=== PATIENT | female | born 1975 | race Caucasian/White ===

== ENCOUNTER 2021-08-30 12:23 | Inpatient (IN) | payer MEDICAID, OTHER ==
[~2021-08-30] VITALS: Ht 165.1 cm; Wt 125.0 kg
[2021-08-30 14:00] LABS: Basophils # (auto) 0 10 ^3/uL (0-0.2); Basophils % (auto) 0.2 % (0.0-2.0); Eosinophils # (auto) 0 10 ^3/uL (0-0.8); Hematocrit 42.1 % (36.0-46.0); Hemoglobin 13.6 g/dL (12.2-16.2); Lymphocytes # (auto) 1.7 10 ^3/uL (0.4-5.4); Lymphocytes % (auto) 19.5 % (10.0-50.0); Mean Corpuscular Hemoglobin 27.2 pg (28.0-32.0); Mean Corpuscular Hgb Conc. 32.2 g/dL (32.0-36.0); Mean Corpuscular Volume 84.4 fL (80.0-100.0); Monocytes # (auto) 0.8 10 ^3/uL (0-1.3); Monocytes % (auto) 8.6 % (0.0-12.0); Neutrophils # (auto) 6.4 10 ^3/uL (1.6-8.6); Neutrophils % (auto) 71.7 % (37.0-80.0); Nucleated Red Blood Cells % 0.1 %; Red Blood Cells 4.99 10^6/uL (4.0-5.20); Red Cell Distribution Width 19.5 % (11.8-14.3); White Blood Cell 8.9 10^3/uL (4.4-10.8)
[2021-08-30 14:27] LABS: Calcium 8.3 mg/dL (8.5-10.1); Magnesium 2.4 mg/dL (1.6-2.6)
[2021-08-30 14:43] LABS: BUN/Creatinine Ratio 14.5; Bilirubin, Total 0.5 mg/dL (0.2-1.0); Total Protein 7.6 g/dL (6.4-8.2)
[2021-08-30] MEDS ORDERED: AZITHROMYCIN 500MG/ 250ML 250 ML IV ONE (15:00)
[2021-08-30] MEDS ORDERED: ZINC SULFATE 220mg CAP or TAB PO ONE (15:00)
[2021-08-30] MEDS ORDERED: CHOLECALCIFEROL (VITD3) 2,000 UNIT CAP/TAB PO ONE (15:00)
[2021-08-30] MEDS ORDERED: ASCORBIC ACID 500 MG TAB PO ONE (15:00)
[2021-08-30] MEDS ORDERED: DexAMETHasone SOD PHOS 10MG/1ML VIAL INJ IV ONE (15:00)
[2021-08-30] MEDS ORDERED: cefTRIAXone 1GM/50ML D5W 50 ML IV ONE (15:00)
[2021-08-30] MEDS ORDERED: hydrOXYchloroQUINE SULFATE 200 MG TAB PO ONE (15:45)
[2021-08-30] MEDS ORDERED: NITROGLYCERIN 0.4 MG SL TAB SL PRN (16:45)
[2021-08-30] MEDS ORDERED: MORPHINE SULFATE INJECTION 2 MG/ML SYRG IV PRN (16:45)
[2021-08-30] MEDS ORDERED: GABA300C10 PO (17:04)
[2021-08-30] MEDS ORDERED: BUPR75TA11 PO (17:04)
[2021-08-30] MEDS ORDERED: ALBUAER3 IN (17:04)
[2021-08-30 19:03] VITALS: BP 113/72
[2021-08-30 22:00] VITALS: BP 109/58
[2021-08-31] MEDS ORDERED: TEMAZEPAM 15 MG CAP PO ONE (00:45)
[2021-08-31] MEDS ORDERED: REMDESIVIR PER PHARMACY 0 ML IV SCH (01:15)
[2021-08-31] MEDS ORDERED: ACETAMINOPHEN 500 MG TAB PO PRN (01:15)
[2021-08-31] MEDS ORDERED: MORPHINE SULFATE INJECTION 2 MG/ML SYRG IV PRN ×2 (01:15)
[2021-08-31] MEDS ORDERED: ONDANSETRON HCL 4 MG/2 ML VIAL IV PRN (01:15)
[2021-08-31] MEDS ORDERED: ALUM & MAG HYDROX-SIMETH LIQ(MAALOX) 30 ML PO PRN (01:15)
[2021-08-31] MEDS ORDERED: LORazepam 2MG/ML-1ML VIAL IV PRN (01:15)
[2021-08-31] MEDS ORDERED: NITROGLYCERIN 0.4 MG SL TAB SL PRN (01:15)
[2021-08-31] MEDS ORDERED: DOCUSATE SOD 100 MG CAP PO PRN (01:15)
[2021-08-31] MEDS ORDERED: FAMOTIDINE (10MG/ML) 2ML VL IV ONE (01:30)
[2021-08-31] MEDS ORDERED: ALBUMIN 25% 100 ML IV ONE (01:30)
[2021-08-31] MEDS ORDERED: ALBUMIN 25% 100 ML IV SCH (06:00)
[2021-08-31] MEDS: FUROSEMIDE 20 MG/2 ML VIAL IV SCH ×2 (06:27→17:52)
[2021-08-31 06:35] LABS: Basophils # (auto) 0 10 ^3/uL (0-0.2); Basophils % (auto) 0.4 % (0.0-2.0); Eosinophils # (auto) 0 10 ^3/uL (0-0.8); Hematocrit 41.2 % (36.0-46.0); Hemoglobin 13.3 g/dL (12.2-16.2); Lymphocytes # (auto) 1.3 10 ^3/uL (0.4-5.4); Lymphocytes % (auto) 21.9 % (10.0-50.0); Mean Corpuscular Hemoglobin 27.1 pg (28.0-32.0); Mean Corpuscular Hgb Conc. 32.2 g/dL (32.0-36.0); Mean Corpuscular Volume 84.2 fL (80.0-100.0); Monocytes # (auto) 0.6 10 ^3/uL (0-1.3); Monocytes % (auto) 10.2 % (0.0-12.0); Neutrophils % (auto) 67.5 % (37.0-80.0); Nucleated Red Blood Cells % 0.2 %; Red Blood Cells 4.89 10^6/uL (4.0-5.20); Red Cell Distribution Width 19.2 % (11.8-14.3)
[2021-08-31 06:47] LABS: Partial Thromboplastin Time 32.1 sec (23.6-33.0)
[2021-08-31 06:51] LABS: Potassium 3.9 mmol/L (3.5-5.1)
[2021-08-31 07:03] LABS: Free T3 2.13 pg/mL (2.3-4.2); Free T4 (Free Thyroxine) 0.98 ng/dL (0.89-1.76)
[2021-08-31 07:04] LABS: Albumin 3.1 g/dL (3.4-5.0); BUN/Creatinine Ratio 16.7; Bilirubin, Total 0.4 mg/dL (0.2-1.0); CRP High Sensitivity 12.3 mg/dL (< 0.3); Calcium 8.3 mg/dL (8.5-10.1); Magnesium 2.8 mg/dL (1.6-2.6); Phosphorus 2.7 mg/dL (2.5-4.90); Total Protein 7.2 g/dL (6.4-8.2); Uric Acid 5.9 mg/dL (2.6-6.0)
[2021-08-31 07:38] LABS: Thyroid Stimulating Hormone 0.46 uIU/mL (0.358-3.74)
[2021-08-31 09:00] VITALS: BP 144/88
[2021-08-31] MEDS: DexAMETHasone SOD PHOS 10MG/1ML VIAL INJ IV SCH (09:16)
[2021-08-31] MEDS: FAMOTIDINE (10MG/ML) 2ML VL IV SCH ×2 (09:16→21:47)
[2021-08-31] MEDS: ASPirin 81 mg TAB PO SCH (09:18)
[2021-08-31] MEDS: ZINC SULFATE 220mg CAP or TAB PO SCH (09:18)
[2021-08-31] MEDS: IVERMECTIN 3 MG TAB PO SCH (09:19)
[2021-08-31] MEDS: ASCORBIC ACID 1,000 MG TAB PO SCH (09:19)
[2021-08-31] MEDS: CHOLECALCIFEROL (VITD3) 2,000 UNIT CAP/TAB PO SCH (09:20)
[2021-08-31] MEDS: ENOXAPARIN SOD 40 MG/0.4 ML SYRINGE SC SCH ×2 (09:20→21:47)
[2021-08-31] MEDS ORDERED: REMDESIVIR 200 MG in NS 210ml LOADING DOSE ADULT IV ONE (10:00)
[2021-08-31] MEDS: BUDESONIDE (INHALATION) 180 MCG IH IN SCH ×2 (10:00→19:34)
[2021-08-31] MEDS ORDERED: POTASSIUM CHL 20 Meq TABLET PO SCH (10:00)
[2021-08-31 13:00] VITALS: BP 103/68
[2021-08-31 13:25] LABS: Urine Bacteria FEW /hpf (None Seen); Urine Blood Negative /uL (Negative); Urine Hyaline Cast FEW /lpf (0 - 2); Urine Mucus FEW (None Seen); Urine Specific Gravity 1.029 (1.001-1.035); Urine WBC 3 /hpf (0 - 5)
[2021-08-31 13:33] LABS: Alcohol, Urine < 3.0 mg/dL (0-10); Amphetamine Screen, Urine NEGATIVE (NEGATIVE); Barbiturate Scree,Urine NEGATIVE (NEGATIVE); Benzodiazephine Screen, Urine NEGATIVE (NEGATIVE); Cannabinoid Screen, Urine NEGATIVE (NEGATIVE); Cocaine Screen, Urine NEGATIVE (NEGATIVE); Opiate Scree,Urine NEGATIVE (NEGATIVE); Phencyclidine Screen, Urine NEGATIVE (NEGATIVE)
[2021-08-31] MEDS ORDERED: DEXTROSE (50%) 50ML SYRG IV PRN (13:45)
[2021-08-31] MEDS: AZITHROMYCIN 500MG/ 250ML 250 ML IV SCH (14:29)
[2021-08-31 15:28] LABS: Hepatitis B Surface Antibody Negative (Negative)
[2021-08-31 16:06] LABS: Hepatitis A Total Antibody Negative (Negative)
[2021-08-31 16:45] LABS: Hepatitis C Antibody Negative (Negative)
[2021-08-31 17:00] VITALS: BP 137/69
[2021-08-31] MEDS: InsuLIN REG 1unit/0.01ml Soln (100units/ml) SC SCH (17:47)
[2021-08-31] MEDS: ACCU-CHEK COMFORT CURVE STRIP VI SCH (17:48)
[2021-08-31] MEDS: ALBUTEROL SULF HFA 90MCG INH 200DOSE IN PRN (19:34)
[2021-08-31] MEDS: guaiFENesin-DM 100/10mg/5ml SYR PO PRN (19:56)
[2021-08-31] MEDS ORDERED: cefTRIAXone 1GM/50ML D5W 50 ML IV SCH (21:00)
[2021-08-31] MEDS: POTASSIUM CHL 10 Meq TABLET PO SCH (21:47)
[2021-08-31 22:00] VITALS: BP 127/81
[2021-08-31] MEDS ORDERED: ATORVASTATIN 20 MG TAB PO SCH (22:00)
[2021-09-01] MEDS: InsuLIN REG 1unit/0.01ml Soln (100units/ml) SC SCH ×4 (00:06→18:17)
[2021-09-01] MEDS: ACCU-CHEK COMFORT CURVE STRIP VI SCH ×4 (00:07→18:24)
[2021-09-01 05:00] VITALS: BP 104/60
[2021-09-01] MEDS: FUROSEMIDE 20 MG/2 ML VIAL IV SCH ×2 (05:49→18:16)
[2021-09-01] MEDS: ALBUTEROL SULF HFA 90MCG INH 200DOSE IN PRN ×2 (07:17→23:24)
[2021-09-01] MEDS: BUDESONIDE (INHALATION) 180 MCG IH IN SCH ×2 (07:17→22:00)
[2021-09-01 09:00] VITALS: BP 129/74
[2021-09-01] MEDS: cefTRIAXone 1GM/50ML D5W 50 ML IV SCH (10:39)
[2021-09-01] MEDS: DexAMETHasone SOD PHOS 10MG/1ML VIAL INJ IV SCH (10:47)
[2021-09-01] MEDS: ZINC SULFATE 220mg CAP or TAB PO SCH (10:48)
[2021-09-01] MEDS: FAMOTIDINE (10MG/ML) 2ML VL IV SCH ×2 (10:48→22:38)
[2021-09-01] MEDS: POTASSIUM CHL 10 Meq TABLET PO SCH ×2 (10:48→22:37)
[2021-09-01] MEDS: ASCORBIC ACID 1,000 MG TAB PO SCH (10:49)
[2021-09-01] MEDS: CHOLECALCIFEROL (VITD3) 2,000 UNIT CAP/TAB PO SCH (10:49)
[2021-09-01] MEDS: IVERMECTIN 3 MG TAB PO SCH (10:49)
[2021-09-01] MEDS: ASPirin 81 mg TAB PO SCH (10:51)
[2021-09-01] MEDS: ENOXAPARIN SOD 40 MG/0.4 ML SYRINGE SC SCH ×2 (10:51→22:38)
[2021-09-01] MEDS: AZITHROMYCIN 500MG/ 250ML 250 ML IV SCH (11:43)
[2021-09-01] MEDS: guaiFENesin-DM 100/10mg/5ml SYR PO PRN ×2 (12:21→20:29)
[2021-09-01 12:22] LABS: Basophils # (auto) 0 10 ^3/uL (0-0.2); Eosinophils # (auto) 0 10 ^3/uL (0-0.8); Hemoglobin 13.2 g/dL (12.2-16.2); Nucleated Red Blood Cells % 0.1 %
[2021-09-01 12:24] LABS: Basophils % (auto) 0.2 % (0.0-2.0); Hematocrit 42.1 % (36.0-46.0); Lymphocytes # (auto) 1.8 10 ^3/uL (0.4-5.4); Lymphocytes % (auto) 21.4 % (10.0-50.0); Mean Corpuscular Hemoglobin 26.5 pg (28.0-32.0); Mean Corpuscular Hgb Conc. 31.4 g/dL (32.0-36.0); Mean Corpuscular Volume 84.6 fL (80.0-100.0); Monocytes # (auto) 0.9 10 ^3/uL (0-1.3); Monocytes % (auto) 11.2 % (0.0-12.0); Neutrophils # (auto) 5.7 10 ^3/uL (1.6-8.6); Neutrophils % (auto) 67.2 % (37.0-80.0); Red Blood Cells 4.98 10^6/uL (4.0-5.20); Red Cell Distribution Width 19.5 % (11.8-14.3); White Blood Cell 8.5 10^3/uL (4.4-10.8)
[2021-09-01 12:30] VITALS: BP 137/73
[2021-09-01 12:41] LABS: Albumin 3.3 g/dL (3.4-5.0); Potassium 3.7 mmol/L (3.5-5.1)
[2021-09-01 12:42] LABS: Albumin 3.4 g/dL (3.4-5.0); Potassium 3.7 mmol/L (3.5-5.1)
[2021-09-01 12:45] LABS: BUN/Creatinine Ratio 22.6; Bilirubin, Total 0.4 mg/dL (0.2-1.0); Total Protein 7.2 g/dL (6.4-8.2)
[2021-09-01 12:50] LABS: Bilirubin, Direct 0.2 mg/dL (0-0.2); Bilirubin, Total 0.5 mg/dL (0.2-1.0); CRP High Sensitivity 4.39 mg/dL (< 0.3); Total Protein 7.2 g/dL (6.4-8.2)
[2021-09-01] MEDS: REMDESIVIR 100mg 100 MG in SODIUM CHL 0.9% 230 ML IV SCH (16:43)
[2021-09-01 17:00] VITALS: BP 127/77
[2021-09-01] MEDS: TEMAZEPAM 15 MG CAP PO PRN (20:29)
[2021-09-01 22:00] VITALS: BP 110/68
[2021-09-02] MEDS: ACCU-CHEK COMFORT CURVE STRIP VI SCH ×4 (00:13→18:21)
[2021-09-02] MEDS: InsuLIN REG 1unit/0.01ml Soln (100units/ml) SC SCH ×4 (00:14→18:29)
[2021-09-02] MEDS: guaiFENesin-DM 100/10mg/5ml SYR PO PRN ×4 (00:16→20:56)
[2021-09-02 05:00] VITALS: BP 135/82
[2021-09-02] MEDS: FUROSEMIDE 20 MG/2 ML VIAL IV SCH ×2 (05:42→18:21)
[2021-09-02 05:49] LABS: Albumin 3.3 g/dL (3.4-5.0); Calcium 8.8 mg/dL (8.5-10.1); Potassium 3.8 mmol/L (3.5-5.1)
[2021-09-02 05:52] LABS: BUN/Creatinine Ratio 18.2; Bilirubin, Direct 0.2 mg/dL (0-0.2); Bilirubin, Total 0.4 mg/dL (0.2-1.0); Total Protein 7.1 g/dL (6.4-8.2)
[2021-09-02] MEDS: ALBUTEROL SULF HFA 90MCG INH 200DOSE IN PRN ×2 (06:22→20:45)
[2021-09-02] MEDS: BUDESONIDE (INHALATION) 180 MCG IH IN SCH ×2 (06:22→20:45)
[2021-09-02 09:00] VITALS: BP 124/85
[2021-09-02] MEDS: cefTRIAXone 1GM/50ML D5W 50 ML IV SCH (10:37)
[2021-09-02] MEDS: FAMOTIDINE (10MG/ML) 2ML VL IV SCH ×2 (10:39→20:55)
[2021-09-02] MEDS: DexAMETHasone SOD PHOS 10MG/1ML VIAL INJ IV SCH (10:39)
[2021-09-02] MEDS: ASPirin 81 mg TAB PO SCH (10:40)
[2021-09-02] MEDS: POTASSIUM CHL 10 Meq TABLET PO SCH ×2 (10:41→20:55)
[2021-09-02] MEDS: ZINC SULFATE 220mg CAP or TAB PO SCH (10:41)
[2021-09-02] MEDS: IVERMECTIN 3 MG TAB PO SCH (10:42)
[2021-09-02] MEDS: CHOLECALCIFEROL (VITD3) 2,000 UNIT CAP/TAB PO SCH (10:42)
[2021-09-02] MEDS: ASCORBIC ACID 1,000 MG TAB PO SCH (10:42)
[2021-09-02] MEDS: ENOXAPARIN SOD 40 MG/0.4 ML SYRINGE SC SCH ×2 (10:43→20:55)
[2021-09-02] MEDS: AZITHROMYCIN 500MG/ 250ML 250 ML IV SCH (12:02)
[2021-09-02 13:00] VITALS: BP 138/93
[2021-09-02] MEDS: REMDESIVIR 100mg 100 MG in SODIUM CHL 0.9% 230 ML IV SCH (15:48)
[2021-09-02 16:36] VITALS: BP 143/98
[2021-09-02] MEDS: HYDROcodone-ACET 5/325MG TAB PO PRN (18:30)
[2021-09-02] MEDS: TEMAZEPAM 15 MG CAP PO PRN (20:56)
[2021-09-02 22:00] VITALS: BP 108/65
[2021-09-03] MEDS: ACCU-CHEK COMFORT CURVE STRIP VI SCH ×5 (00:13→23:58)
[2021-09-03] MEDS: InsuLIN REG 1unit/0.01ml Soln (100units/ml) SC SCH ×4 (00:15→17:41)
[2021-09-03 05:00] VITALS: BP 120/77
[2021-09-03 06:01] LABS: Potassium 4.4 mmol/L (3.5-5.1)
[2021-09-03] MEDS: FUROSEMIDE 20 MG/2 ML VIAL IV SCH ×2 (06:02→17:34)
[2021-09-03 06:15] LABS: Albumin 3.1 g/dL (3.4-5.0); BUN/Creatinine Ratio 22.9; Bilirubin, Total 0.5 mg/dL (0.2-1.0); Calcium 9.1 mg/dL (8.5-10.1); Total Protein 6.5 g/dL (6.4-8.2)
[2021-09-03] MEDS: guaiFENesin-DM 100/10mg/5ml SYR PO PRN ×4 (06:24→20:40)
[2021-09-03] MEDS: HYDROcodone-ACET 5/325MG TAB PO PRN ×4 (06:24→20:40)
[2021-09-03] MEDS: BUDESONIDE (INHALATION) 180 MCG IH IN SCH ×2 (06:27→21:50)
[2021-09-03] MEDS: ALBUTEROL SULF HFA 90MCG INH 200DOSE IN PRN ×2 (06:27→21:50)
[2021-09-03] MEDS: ENOXAPARIN SOD 40 MG/0.4 ML SYRINGE SC SCH ×2 (08:43→21:19)
[2021-09-03] MEDS: DexAMETHasone SOD PHOS 10MG/1ML VIAL INJ IV SCH (08:43)
[2021-09-03] MEDS: cefTRIAXone 1GM/50ML D5W 50 ML IV SCH (08:43)
[2021-09-03] MEDS: AZITHROMYCIN 500MG/ 250ML 250 ML IV SCH (08:43)
[2021-09-03] MEDS: FAMOTIDINE (10MG/ML) 2ML VL IV SCH ×2 (08:43→21:18)
[2021-09-03] MEDS: ZINC SULFATE 220mg CAP or TAB PO SCH (08:44)
[2021-09-03] MEDS: ASPirin 81 mg TAB PO SCH (08:44)
[2021-09-03] MEDS: IVERMECTIN 3 MG TAB PO SCH (08:44)
[2021-09-03] MEDS: POTASSIUM CHL 10 Meq TABLET PO SCH ×2 (08:44→21:18)
[2021-09-03] MEDS: CHOLECALCIFEROL (VITD3) 2,000 UNIT CAP/TAB PO SCH (08:44)
[2021-09-03] MEDS: ASCORBIC ACID 1,000 MG TAB PO SCH (08:45)
[2021-09-03 08:55] VITALS: BP 120/69
[2021-09-03 13:00] VITALS: BP 147/98
[2021-09-03] MEDS: REMDESIVIR 100mg 100 MG in SODIUM CHL 0.9% 230 ML IV SCH (16:23)
[2021-09-03 17:00] VITALS: BP 136/72
[2021-09-03] MEDS: TEMAZEPAM 15 MG CAP PO PRN (21:20)
[2021-09-03 22:17] VITALS: BP 140/86
[2021-09-04] MEDS: HYDROcodone-ACET 5/325MG TAB PO PRN ×5 (00:41→14:59)
[2021-09-04 05:25] VITALS: BP 121/79
[2021-09-04] MEDS: InsuLIN REG 1unit/0.01ml Soln (100units/ml) SC SCH ×3 (06:00→12:37)
[2021-09-04] MEDS: ACCU-CHEK COMFORT CURVE STRIP VI SCH ×2 (06:07→12:28)
[2021-09-04] MEDS: FUROSEMIDE 20 MG/2 ML VIAL IV SCH (06:07)
[2021-09-04] MEDS: guaiFENesin-DM 100/10mg/5ml SYR PO PRN ×4 (06:17→14:58)
[2021-09-04 06:23] LABS: Basophils # (auto) 0 10 ^3/uL (0-0.2); Basophils % (auto) 0.1 % (0.0-2.0); Eosinophils # (auto) 0 10 ^3/uL (0-0.8); Lymphocytes # (auto) 2.5 10 ^3/uL (0.4-5.4); Mean Corpuscular Hemoglobin 26.8 pg (28.0-32.0); Monocytes # (auto) 0.9 10 ^3/uL (0-1.3); Red Blood Cells 5.22 10^6/uL (4.0-5.20)
[2021-09-04 06:24] LABS: Eosinophils % (auto) 0.3 % (0.0-7.0); Hematocrit 43.9 % (36.0-46.0); Lymphocytes % (auto) 29.6 % (10.0-50.0); Mean Corpuscular Hgb Conc. 31.8 g/dL (32.0-36.0); Monocytes % (auto) 10.9 % (0.0-12.0); Neutrophils % (auto) 59.1 % (37.0-80.0); Nucleated Red Blood Cells % 0.2 %; Red Cell Distribution Width 19.1 % (11.8-14.3); White Blood Cell 8.5 10^3/uL (4.4-10.8)
[2021-09-04 06:47] LABS: Potassium 4.2 mmol/L (3.5-5.1)
[2021-09-04] MEDS: ALBUTEROL SULF HFA 90MCG INH 200DOSE IN PRN (06:51)
[2021-09-04] MEDS: BUDESONIDE (INHALATION) 180 MCG IH IN SCH (06:51)
[2021-09-04 06:53] LABS: Albumin 3.1 g/dL (3.4-5.0); BUN/Creatinine Ratio 24.2; Bilirubin, Total 0.5 mg/dL (0.2-1.0); CRP High Sensitivity 0.75 mg/dL (< 0.3); Calcium 8.7 mg/dL (8.5-10.1); Total Protein 6.5 g/dL (6.4-8.2)
[2021-09-04 08:00] VITALS: BP 132/96
[2021-09-04] MEDS: cefTRIAXone 1GM/50ML D5W 50 ML IV SCH (08:26)
[2021-09-04] MEDS: DexAMETHasone SOD PHOS 10MG/1ML VIAL INJ IV SCH (08:27)
[2021-09-04] MEDS: FAMOTIDINE (10MG/ML) 2ML VL IV SCH (08:27)
[2021-09-04] MEDS: ZINC SULFATE 220mg CAP or TAB PO SCH (08:28)
[2021-09-04] MEDS: ASPirin 81 mg TAB PO SCH (08:28)
[2021-09-04] MEDS: POTASSIUM CHL 10 Meq TABLET PO SCH (08:29)
[2021-09-04] MEDS: ASCORBIC ACID 1,000 MG TAB PO SCH (08:29)
[2021-09-04] MEDS: IVERMECTIN 3 MG TAB PO SCH (08:29)
[2021-09-04] MEDS: ENOXAPARIN SOD 40 MG/0.4 ML SYRINGE SC SCH (08:30)
[2021-09-04] MEDS: CHOLECALCIFEROL (VITD3) 2,000 UNIT CAP/TAB PO SCH (08:30)
[2021-09-04 09:00] VITALS: BP 132/96
[2021-09-04] MEDS: AZITHROMYCIN 500MG/ 250ML 250 ML IV SCH (10:28)
[2021-09-04 12:47] VITALS: BP 144/87
[2021-09-04] MEDS ORDERED: DEX4T PO (13:35)
[2021-09-04] MEDS ORDERED: FAMO20TA10 PO (13:35)
[2021-09-04] MEDS ORDERED: DEXT1SYP9 PO (13:35)
[2021-09-04] MEDS ORDERED: ASPI-378 PO (13:35)
[2021-09-04] MEDS ORDERED: ALBUAER3 IN (13:35)
[2021-09-04] MEDS ORDERED: CHOL20007 PO (13:35)
[2021-09-04] MEDS ORDERED: BUDE2SUS3 IN (13:35)
[2021-09-04] MEDS ORDERED: ASCO10003 PO (13:35)
[2021-09-04] MEDS ORDERED: ZINC220T6 PO (13:35)
[2021-09-04] MEDS ORDERED: DOXY-286 PO (13:35)
[2021-09-04] MEDS: REMDESIVIR 100mg 100 MG in SODIUM CHL 0.9% 230 ML IV SCH (14:59)
[2021-09-04 16:55] VITALS: BP 115/69
== END 2021-09-04 18:00 | disposition home or self-care (01) | DRG 720 ==
LOC: ER 12:23 → TELE 16:38 → TELE-EAST 18:36
PROVIDERS: ADMIT Hospitalist; ATTEND Internal Medicine
PROC: XW033E5 Introduction of Remdesivir Anti-infective into Peripheral Vein, Percutaneous Approach, New Technology Group 5 (ICD-10-PCS; principal; 2021-08-31)
DX: A41.89 Other specified sepsis (principal); J96.21 Acute and chronic respiratory failure with hypoxia; J12.82 Pneumonia due to coronavirus disease 2019; U07.1 COVID-19; D89.839 Cytokine release syndrome, grade unspecified; J45.901 Unspecified asthma with (acute) exacerbation; Z68.42 Body mass index [BMI] 45.0-49.9, adult; E88.09 Other disorders of plasma-protein metabolism, not elsewhere classified; R65.20 Severe sepsis without septic shock; E66.01 Morbid (severe) obesity due to excess calories; F32.9 Major depressive disorder, single episode, unspecified; E88.81 Metabolic syndrome and other insulin resistance; M79.7 Fibromyalgia; E55.9 Vitamin D deficiency, unspecified; E78.5 Hyperlipidemia, unspecified
CPT/HCPCS: 36415; 36600; 71045; 80053; 80061; 80076; 80307; 81001; 82306; 82728; 82805; 82962; 83036; 83605; 83615; 83735; 83880; 84100; 84132; 84439; 84443; 84481; 84484; 84550; 85025; 85379; 85610; 85730; 86141; 86704; 86706; 86708; 86803; 87040; 87086; 87340; 87426; 93005; 93970; 94640; 96365; 96375; G0378; J0696; J1100; J1815; J3490; P9047

== ENCOUNTER 2021-10-23 22:18 | Emergency (ER) | payer MEDICAID ==
[~2021-10-23] VITALS: Ht 165.1 cm; Wt 131.5 kg
[~2021-10-23 22:18] MED LIST: ALBUAER3 IN; ASCO10003 PO; ASPI-378 PO; BUDE2SUS3 IN; BUPR75TA11 PO; DEX4T PO; DEXT1SYP9 PO; DOXY-286 PO; GABA300C10 PO; ZINC220T6 PO
[2021-10-23 22:29] VITALS: BP 140/86
== END 2021-10-23 22:36 | disposition left against medical advice (07) ==
LOC: ER 22:18
DX: R06.02 Shortness of breath (principal); Z20.822 Contact with and (suspected) exposure to COVID-19; Z53.21 Procedure and treatment not carried out due to patient leaving prior to being seen by health care provider
CPT/HCPCS: 36415; 87426

== ENCOUNTER 2022-05-19 12:31 | Emergency (ER) | payer MEDICAID ==
[~2022-05-19] VITALS: Ht 165.1 cm; Wt 127.0 kg
[2022-05-19 19:03] LABS: Urine Bacteria FEW /hpf (None Seen); Urine Blood Negative /uL (Negative); Urine Mucus FEW (None Seen); Urine Specific Gravity 1.027 (1.001-1.035); Urine WBC 3 /hpf (0 - 5)
[2022-05-19 19:07] LABS: Albumin 3.4 g/dL (3.4-5.0); BUN/Creatinine Ratio 17.3; Calcium 8.3 mg/dL (8.5-10.1); Potassium 3.3 mmol/L (3.5-5.1)
[2022-05-19 19:10] LABS: Bilirubin, Total 1.2 mg/dL (0.2-1.0); Total Protein 6.8 g/dL (6.4-8.2)
[2022-05-19 19:21] LABS: Basophils # (auto) 0.2 10 ^3/uL (0-0.2); Basophils % (auto) 2.7 % (0.0-2.0); Eosinophils # (auto) 0.1 10 ^3/uL (0-0.8); Eosinophils % (auto) 1.3 % (0.0-7.0); Hematocrit 43.3 % (36.0-46.0); Hemoglobin 13.5 g/dL (12.2-16.2); Lymphocytes # (auto) 1.8 10 ^3/uL (0.4-5.4); Lymphocytes % (auto) 27.1 % (10.0-50.0); Mean Corpuscular Hemoglobin 26.4 pg (28.0-32.0); Mean Corpuscular Hgb Conc. 31.2 g/dL (32.0-36.0); Mean Corpuscular Volume 84.6 fL (80.0-100.0); Monocytes # (auto) 0.4 10 ^3/uL (0-1.3); Neutrophils # (auto) 4.3 10 ^3/uL (1.6-8.6); Neutrophils % (auto) 62.9 % (37.0-80.0); Nucleated Red Blood Cells % 0.4 %; Red Blood Cells 5.11 10^6/uL (4.0-5.20); White Blood Cell 6.8 10^3/uL (4.4-10.8)
[2022-05-19] MEDS ORDERED: DICY10CA PO (20:30)
[2022-05-19 20:48] VITALS: BP 128/74
[2022-05-19 21:16] LABS: Red Cell Distribution Width 20.6 % (11.8-14.3)
== END 2022-05-19 20:58 | disposition home or self-care (01) ==
LOC: ER 12:33
DX: K43.9 Ventral hernia without obstruction or gangrene (principal); J44.9 Chronic obstructive pulmonary disease, unspecified
CPT/HCPCS: 36415; 80053; 81001; 85025

== ENCOUNTER 2023-04-19 10:39 | Inpatient (IN) | payer MEDICAID ==
[~2023-04-19] VITALS: Ht 165.1 cm; Wt 109.6 kg
[2023-04-19] VITALS (22 sets, daily range): BP systolic 68–109; BP diastolic 26–56; PULSE 89–110; RESP 12–27; TEMP 97.5–97.7; O2SAT 2–98
[~2023-04-19 10:39] MED LIST changes: -BUPR75TA11 PO; +BUPR75TA89 PO; +DICY10CA PO; +GABA-1250 PO; -GABA300C10 PO
[2023-04-19] MEDS ORDERED: SODIUM CHLORIDE 0.9% 500 ML IVB ONE (11:00)
[2023-04-19 11:46] LABS: Basophils # (auto) 0 10 ^3/uL (0-0.2); Basophils % (auto) 0.3 % (0.0-2.0); Eosinophils # (auto) 0.1 10 ^3/uL (0-0.8); Lymphocytes # (auto) 1.4 10 ^3/uL (0.4-5.4); Monocytes # (auto) 1.5 10 ^3/uL (0-1.3); Nucleated Red Blood Cells % 0.2 %
[2023-04-19 11:49] LABS: Eosinophils % (auto) 0.6 % (0.0-7.0); Hematocrit 39.2 % (36.0-46.0); Hemoglobin 13.3 g/dL (12.2-16.2); Mean Corpuscular Volume 123.5 fL (80.0-100.0); Monocytes % (auto) 11.3 % (0.0-12.0); Neutrophils # (auto) 10.6 10 ^3/uL (1.6-8.6); Neutrophils % (auto) 77.8 % (37.0-80.0); Red Blood Cells 3.17 10^6/uL (4.0-5.20); Red Cell Distribution Width 15.3 % (11.8-14.3); White Blood Cell 13.6 10^3/uL (4.4-10.8)
[2023-04-19 11:57] LABS: INR 1.46 (0.9-1.15); Partial Thromboplastin Time 31.3 SEC (24.5-34.5)
[2023-04-19 12:10] LABS: Anion Gap 7 (5-15); Blood Alcohol < 3.0 mg/dL (<10); Blood Urea Nitrogen 18 mg/dL (7-18); Calcium 8.3 mg/dL (8.5-10.1); Carbon Dioxide 29 mmol/L (21-32); Chloride 84 mmol/L (98-107); Glucose 100 mg/dL (74-106); Lipase 95 U/L (73-393); Magnesium 1.8 mg/dL (1.6-2.6); Sodium 120 mmol/L (136-145)
[2023-04-19 12:15] LABS: Alanine Aminotransferase 50 U/L (13-56); Alkaline Phosphatase 263 U/L (45-117); Aspartate Aminotransferase 98 U/L (15-37); BUN/Creatinine Ratio 17.6 (10.0-20.0); GFR African American 74 mL/min; GFR Non-African American 61 mL/min; Total Protein 7.2 g/dL (6.4-8.2)
[2023-04-19 12:16] LABS: Lactic Acid w/Reflex 2.3 mmol/L (0.4-2.0)
[2023-04-19 12:29] LABS: Potassium 5.9 mmol/L (3.5-5.1)
[2023-04-19 13:02] LABS: Urine Bacteria FEW /hpf (None Seen); Urine Blood Negative /uL (Negative); Urine Clarity HAZY (Clear); Urine Color Orange (Yellow); Urine Hyaline Cast FEW /lpf (0 - 2); Urine Mucus FEW (None Seen); Urine Protein, UAD TRACE (Negative); Urine Specific Gravity 1.017 (1.001-1.035); Urine Urobilinogen Normal (Negative); Urine WBC 2 /hpf (0 - 5); Urine pH 5.5 (5.0-8.0)
[2023-04-19] MEDS ORDERED: SODIUM CHLORIDE 0.9% 1,000 ML IV ONE (13:30)
[2023-04-19] MEDS ORDERED: cefTRIAXone 1GM/50ML D5W 50 ML IV ONE (13:30)
[2023-04-19] MEDS ORDERED: levoFLOXacin 500MG 100 ML IV ONE (13:30)
[2023-04-19 13:53] LABS: Macrocytosis Moderate; Platelet Estimate Adequate
[2023-04-19] MEDS ORDERED: LORazepam 2MG/ML-1ML VIAL IV PRN (14:45)
[2023-04-19] MEDS ORDERED: ALBUTEROL SULF 2.5 MG/0.5ML(0.5%) NEB SOLN NEB ONE (14:45)
[2023-04-19] MEDS ORDERED: DEXTROSE (50%) 50ML SYRG IV ONE (14:45)
[2023-04-19] MEDS ORDERED: InsuLIN REG 1unit/0.01ml Soln (100units/ml) IV ONE (14:45)
[2023-04-19] MEDS ORDERED: FUROSEMIDE 40 MG/4 ML VIAL IV ONE (14:45)
[2023-04-19] MEDS ORDERED: SODIUM BICARBONATE 8.4% INJ 50ML SYRINGE IV ONE (14:45)
[2023-04-19] MEDS ORDERED: CALCIUM GLUC 1,000mg/50ml-NS 50 ML IV ONE (14:45)
[2023-04-19] MEDS: chlordiazePOXIDE HCL 25 MG CAP PO SCH ×2 (15:52→23:02)
[2023-04-19 16:35] LABS: Amphetamine Screen, Urine NEGATIVE (NEGATIVE); Barbiturate Scree,Urine NEGATIVE (NEGATIVE); Benzodiazephine Screen, Urine NEGATIVE (NEGATIVE); Cannabinoid Screen, Urine NEGATIVE (NEGATIVE); Cocaine Screen, Urine NEGATIVE (NEGATIVE); Creatinine, Urine 163 mg/dL (30.0-125.0); Opiate Scree,Urine NEGATIVE (NEGATIVE); Phencyclidine Screen, Urine NEGATIVE (NEGATIVE); Sodium Urine < 5 mmol/L (40-220)
[2023-04-19] MEDS ORDERED: GABA300C PO (17:10)
[2023-04-19] MEDS: SODIUM CHLORIDE 0.9% 1,000 ML IV SCH (17:16)
[2023-04-19] MEDS: PIPERACILLIN-TAZOB 3.375GM 100 ML IV SCH (17:20)
[2023-04-19] MEDS ORDERED: PIPERACILLIN-TAZOB 3.375GM 100 ML IV SCH (18:00)
[2023-04-19 19:24] LABS: Lactic Acid w/Reflex 2.3 mmol/L (0.4-2.0)
[2023-04-19] MEDS ORDERED: SODIUM CHLORIDE 0.9% 500 ML IV ONE (19:30)
[2023-04-19] MEDS: NOREPINEPHRINE 8 MG/250ML KIT 250 ML IV SCH (21:20)
[2023-04-19] MEDS ORDERED: phytonadione 10 MG in SODIUM CHL 0.9% 50 ML IV ONE (22:45)
[2023-04-19] MEDS: traMADol HCL 50 MG TAB PO PRN (23:02)
[2023-04-20] VITALS (102 sets, daily range): BP systolic 75–125; BP diastolic 39–77; PULSE 75–110; RESP 9–29; TEMP 97.3–98; O2SAT 85–100
[2023-04-20] MEDS: MORPHINE SULFATE INJ 2 MG/ml SYRG IV PRN ×5 (00:12→22:06)
[2023-04-20] MEDS: PIPERACILLIN-TAZOB 3.375GM 100 ML IV SCH ×4 (01:00→17:18)
[2023-04-20] MEDS: SODIUM CHLORIDE 0.9% 1,000 ML IV SCH (05:03)
[2023-04-20] MEDS: chlordiazePOXIDE HCL 25 MG CAP PO SCH ×3 (05:44→22:05)
[2023-04-20 05:57] LABS: Basophils # (auto) 0.1 10 ^3/uL (0-0.2); Hemoglobin 12.5 g/dL (12.2-16.2); Monocytes # (auto) 1.5 10 ^3/uL (0-1.3); Red Cell Distribution Width 15.5 % (11.8-14.3)
[2023-04-20 06:00] LABS: Basophils % (auto) 0.7 % (0.0-2.0); Eosinophils # (auto) 0.1 10 ^3/uL (0-0.8); Eosinophils % (auto) 0.9 % (0.0-7.0); Hematocrit 36.4 % (36.0-46.0); Lymphocytes % (auto) 14.4 % (10.0-50.0); Mean Corpuscular Hemoglobin 42.9 pg (28.0-32.0); Mean Corpuscular Hgb Conc. 34.2 g/dL (32.0-36.0); Mean Corpuscular Volume 125.4 fL (80.0-100.0); Monocytes % (auto) 10.5 % (0.0-12.0); Neutrophils # (auto) 10.2 10 ^3/uL (1.6-8.6); Neutrophils % (auto) 73.5 % (37.0-80.0); Nucleated Red Blood Cells % 0.1 %; White Blood Cell 13.9 10^3/uL (4.4-10.8)
[2023-04-20 06:25] LABS: Albumin 1.7 g/dL (3.4-5.0); BUN/Creatinine Ratio 17.9 (10.0-20.0); Bilirubin, Total 5.4 mg/dL (0.2-1.0); Total Protein 6.2 g/dL (6.4-8.2)
[2023-04-20 06:57] LABS: Potassium 5.7 mmol/L (3.5-5.1)
[2023-04-20] MEDS ORDERED: SODIUM ZIRCONIUM CYCL 10 GM PAK PO ONE (07:15)
[2023-04-20] MEDS: PANTOPRAZOLE 40 MG/10 ML VIAL INJ IV SCH (09:03)
[2023-04-20] MEDS: THIAMINE HCL 100 MG TAB PO SCH (09:04)
[2023-04-20] MEDS: FOLIC ACID 1 MG TAB PO SCH (09:04)
[2023-04-20] MEDS: ALBUTEROL SULF 2.5 MG/0.5ML(0.5%) NEB SOLN NEB PRN (09:13)
[2023-04-20] MEDS: IPRATROPIUM BROM 0.5 MG/2.5ML INH SOL NEB PRN (09:13)
[2023-04-20] MEDS ORDERED: FOLIC ACID 1 MG, MULTIPLE VITAMIN 10 ML, MAGNESIUM SULF SDV 50% 8 MEQ, THIAMINE INJ 100... INJ SCH ×5 (12:00)
[2023-04-20] MEDS: FUROSEMIDE 40 MG/4 ML VIAL IV SCH ×2 (13:15→17:19)
[2023-04-20 14:04] LABS: BUN/Creatinine Ratio 17.2 (10.0-20.0); Potassium 5.3 mmol/L (3.5-5.1)
[2023-04-20 14:32] LABS: Body Fluid Red Blood Cells 98 CUMM (0-2000); Body Fluid White Blood Cells 238 CUMM (0-200); Body Fluid pH 8
[2023-04-20 14:33] LABS: Body Fluid Polymorphonuclear 64 % (0-25)
[2023-04-20] MEDS ORDERED: LIDOCAINE 1% (LOCAL ANESTH.) PF 5ml SDV ID ONE (14:45)
[2023-04-20] MEDS: ALBUTEROL SULF 2.5 MG/0.5ML(0.5%) NEB SOLN NEB SCH (19:10)
[2023-04-20] MEDS: IPRATROPIUM BROM 0.5 MG/2.5ML INH SOL NEB SCH (19:10)
[2023-04-20] MEDS: traMADol HCL 50 MG TAB PO PRN (19:55)
[2023-04-20] MEDS: SODIUM CHLOR 0.9% PF (SALINE LOCK) 10ML VIAL/SYR IV SCH (22:14)
[2023-04-21] VITALS (79 sets, daily range): BP systolic 83–114; BP diastolic 44–90; PULSE 79–117; RESP 7–27; TEMP 97.4–97.5; O2SAT 80–100
[2023-04-21] MEDS: PIPERACILLIN-TAZOB 3.375GM 100 ML IV SCH ×4 (02:01→18:09)
[2023-04-21] MEDS: MORPHINE SULFATE INJ 2 MG/ml SYRG IV PRN ×5 (02:02→22:29)
[2023-04-21] MEDS: FUROSEMIDE 40 MG/4 ML VIAL IV SCH ×2 (06:08→18:09)
[2023-04-21] MEDS: ALBUTEROL SULF 2.5 MG/0.5ML(0.5%) NEB SOLN NEB SCH ×3 (06:45→18:38)
[2023-04-21] MEDS: IPRATROPIUM BROM 0.5 MG/2.5ML INH SOL NEB SCH ×3 (06:45→18:38)
[2023-04-21 07:39] LABS: Basophils # (auto) 0.1 10 ^3/uL (0-0.2); Eosinophils # (auto) 0.2 10 ^3/uL (0-0.8); Hemoglobin 12.1 g/dL (12.2-16.2)
[2023-04-21 07:41] LABS: Basophils % (auto) 0.9 % (0.0-2.0); Eosinophils % (auto) 1.3 % (0.0-7.0); Hematocrit 35.1 % (36.0-46.0); Lymphocytes # (auto) 1.9 10 ^3/uL (0.4-5.4); Lymphocytes % (auto) 15.7 % (10.0-50.0); Mean Corpuscular Hemoglobin 42.4 pg (28.0-32.0); Mean Corpuscular Hgb Conc. 34.4 g/dL (32.0-36.0); Mean Corpuscular Volume 123.3 fL (80.0-100.0); Monocytes # (auto) 1.4 10 ^3/uL (0-1.3); Monocytes % (auto) 11.1 % (0.0-12.0); Neutrophils # (auto) 8.7 10 ^3/uL (1.6-8.6); Nucleated Red Blood Cells % 0.2 %; Red Blood Cells 2.85 10^6/uL (4.0-5.20); Red Cell Distribution Width 15.5 % (11.8-14.3); White Blood Cell 12.2 10^3/uL (4.4-10.8)
[2023-04-21 07:46] LABS: Potassium 4.4 mmol/L (3.5-5.1)
[2023-04-21 08:08] LABS: Albumin 1.7 g/dL (3.4-5.0); BUN/Creatinine Ratio 16.5 (10.0-20.0); Bilirubin, Total 5.6 mg/dL (0.2-1.0); Calcium 7.9 mg/dL (8.5-10.1); Total Protein 6.4 g/dL (6.4-8.2)
[2023-04-21] MEDS ORDERED: chlordiazePOXIDE HCL 25 MG CAP PO SCH (10:00)
[2023-04-21] MEDS: SODIUM CHLOR 0.9% PF (SALINE LOCK) 10ML VIAL/SYR IV SCH ×2 (10:00→22:27)
[2023-04-21] MEDS: LACTULOSE 20Gm/30ML SOLN PO SCH ×2 (10:38→22:00)
[2023-04-21] MEDS: FOLIC ACID 1 MG TAB PO SCH (10:39)
[2023-04-21] MEDS: NOREPINEPHRINE 8 MG/250ML KIT 250 ML IV SCH ×2 (10:39→19:30)
[2023-04-21] MEDS: THIAMINE HCL 100 MG TAB PO SCH (10:39)
[2023-04-21] MEDS: PANTOPRAZOLE 40 MG/10 ML VIAL INJ IV SCH (10:40)
[2023-04-21] MEDS ORDERED: MULTIPLE VITAMIN TAB ONE (12:19)
[2023-04-21] MEDS: MIDODRINE HCL 10 MG TAB PO SCH ×2 (12:27→18:09)
[2023-04-21] MEDS ORDERED: MULTIPLE VITAMIN TAB PO ONE (12:30)
[2023-04-21] MEDS ORDERED: GABAPENTIN 100 MG CAP PO ONE (13:30)
[2023-04-21] MEDS: GABAPENTIN 100 MG CAP PO SCH (22:24)
[2023-04-21] MEDS: OCTREOTIDE ACETATE 100 MCG/ML VL SUBCUT SCH (22:26)
[2023-04-22] VITALS (100 sets, daily range): BP systolic 72–127; BP diastolic 40–85; PULSE 67–110; RESP 5–25; TEMP 96.2–97.8; O2SAT 86–99
[2023-04-22] MEDS: MORPHINE SULFATE INJ 2 MG/ml SYRG IV PRN ×3 (03:41→22:34)
[2023-04-22] MEDS: OCTREOTIDE ACETATE 100 MCG/ML VL SUBCUT SCH ×3 (05:54→22:19)
[2023-04-22] MEDS: MIDODRINE HCL 10 MG TAB PO SCH ×3 (05:54→17:04)
[2023-04-22] MEDS: PIPERACILLIN-TAZOB 3.375GM 100 ML IV SCH ×4 (05:54→17:01)
[2023-04-22] MEDS: FUROSEMIDE 40 MG/4 ML VIAL IV SCH (05:54)
[2023-04-22] MEDS: HYDROcodone-ACET 5/325MG TAB PO PRN ×2 (05:55→21:31)
[2023-04-22] MEDS ORDERED: chlordiazePOXIDE HCL 25 MG CAP PO SCH (07:00)
[2023-04-22 07:02] LABS: Basophils # (auto) 0.1 10 ^3/uL (0-0.2); Hemoglobin 11.7 g/dL (12.2-16.2); Lymphocytes # (auto) 1.7 10 ^3/uL (0.4-5.4); Monocytes # (auto) 1.3 10 ^3/uL (0-1.3); Neutrophils # (auto) 7.5 10 ^3/uL (1.6-8.6); Red Blood Cells 2.72 10^6/uL (4.0-5.20)
[2023-04-22 07:05] LABS: Basophils % (auto) 0.6 % (0.0-2.0); Eosinophils # (auto) 0.1 10 ^3/uL (0-0.8); Eosinophils % (auto) 1.2 % (0.0-7.0); Hematocrit 33.7 % (36.0-46.0); Mean Corpuscular Hemoglobin 43.1 pg (28.0-32.0); Mean Corpuscular Hgb Conc. 34.7 g/dL (32.0-36.0); Monocytes % (auto) 11.9 % (0.0-12.0); Neutrophils % (auto) 70.3 % (37.0-80.0); Red Cell Distribution Width 15.2 % (11.8-14.3); White Blood Cell 10.7 10^3/uL (4.4-10.8)
[2023-04-22 07:25] LABS: Potassium 3.9 mmol/L (3.5-5.1)
[2023-04-22] MEDS: ALBUTEROL SULF 2.5 MG/0.5ML(0.5%) NEB SOLN NEB SCH ×3 (08:15→18:22)
[2023-04-22] MEDS: IPRATROPIUM BROM 0.5 MG/2.5ML INH SOL NEB SCH ×3 (08:15→18:22)
[2023-04-22] MEDS: LACTULOSE 20Gm/30ML SOLN PO SCH ×2 (08:48→22:15)
[2023-04-22] MEDS: MULTIPLE VITAMIN TAB PO SCH (08:48)
[2023-04-22] MEDS: PANTOPRAZOLE 40 MG/10 ML VIAL INJ IV SCH (08:48)
[2023-04-22] MEDS: THIAMINE HCL 100 MG TAB PO SCH (08:49)
[2023-04-22] MEDS: SODIUM CHLOR 0.9% PF (SALINE LOCK) 10ML VIAL/SYR IV SCH ×2 (08:49→22:20)
[2023-04-22] MEDS: GABAPENTIN 100 MG CAP PO SCH ×2 (08:49→22:20)
[2023-04-22] MEDS: FOLIC ACID 1 MG TAB PO SCH (08:49)
[2023-04-22] MEDS: MUPIROCIN 2% OINT 15gm or 22gm FOR MRSA NARES EACHNOSTRI SCH ×2 (09:18→22:20)
[2023-04-22 10:22] LABS: Macrocytosis Moderate
[2023-04-22 10:23] LABS: Platelet Estimate Adequate
[2023-04-22] MEDS: NOREPINEPHRINE 8 MG/250ML KIT 250 ML IV SCH (11:06)
[2023-04-22 11:55] LABS: Hepatitis A Ab IgM Negative
[2023-04-22 11:56] LABS: Hepatitis B Core IgM Negative; Hepatitis B Surface Antigen Negative (Negative); Hepatitis C Antibody Negative (Negative)
[2023-04-22] MEDS: BUMETANIDE 1mg/4ml VIAL (0.25mg/ml) IV SCH (17:01)
[2023-04-23] VITALS (105 sets, daily range): BP systolic 79–126; BP diastolic 38–84; PULSE 76–113; RESP 7–30; TEMP 96.5–97.4; O2SAT 87–99
[2023-04-23] MEDS: ONDANSETRON HCL 4 MG/2 ML VIAL IV PRN ×2 (00:29→12:16)
[2023-04-23] MEDS: PIPERACILLIN-TAZOB 3.375GM 100 ML IV SCH ×4 (00:40→17:12)
[2023-04-23] MEDS: HYDROcodone-ACET 5/325MG TAB PO PRN ×3 (05:14→21:27)
[2023-04-23 05:19] LABS: Basophils # (auto) 0.1 10 ^3/uL (0-0.2); Eosinophils # (auto) 0.2 10 ^3/uL (0-0.8); Hemoglobin 11.6 g/dL (12.2-16.2); Monocytes # (auto) 1.4 10 ^3/uL (0-1.3); Neutrophils # (auto) 6.9 10 ^3/uL (1.6-8.6); White Blood Cell 10.7 10^3/uL (4.4-10.8)
[2023-04-23 05:22] LABS: Basophils % (auto) 0.6 % (0.0-2.0); Hematocrit 32.9 % (36.0-46.0); Lymphocytes % (auto) 19.2 % (10.0-50.0); Mean Corpuscular Hemoglobin 43.4 pg (28.0-32.0); Mean Corpuscular Hgb Conc. 35.2 g/dL (32.0-36.0); Monocytes % (auto) 13.3 % (0.0-12.0); Neutrophils % (auto) 64.9 % (37.0-80.0); Red Blood Cells 2.67 10^6/uL (4.0-5.20); Red Cell Distribution Width 15.6 % (11.8-14.3)
[2023-04-23] MEDS: MIDODRINE HCL 10 MG TAB PO SCH ×3 (05:32→17:12)
[2023-04-23] MEDS: OCTREOTIDE ACETATE 100 MCG/ML VL SUBCUT SCH ×3 (05:33→21:31)
[2023-04-23] MEDS: BUMETANIDE 1mg/4ml VIAL (0.25mg/ml) IV SCH ×2 (05:34→17:12)
[2023-04-23 05:35] LABS: Calcium 7.8 mg/dL (8.5-10.1); Potassium 3.6 mmol/L (3.5-5.1)
[2023-04-23 05:39] LABS: BUN/Creatinine Ratio 15.8 (10.0-20.0)
[2023-04-23 05:54] LABS: Mean Corpuscular Volume 123.3 fL (80.0-100.0)
[2023-04-23] MEDS: ALBUTEROL SULF 2.5 MG/0.5ML(0.5%) NEB SOLN NEB SCH ×3 (06:18→18:18)
[2023-04-23] MEDS: IPRATROPIUM BROM 0.5 MG/2.5ML INH SOL NEB SCH ×3 (06:18→18:18)
[2023-04-23] MEDS: PANTOPRAZOLE 40 MG TAB PO SCH (08:47)
[2023-04-23] MEDS: MULTIPLE VITAMIN TAB PO SCH (08:47)
[2023-04-23] MEDS: THIAMINE HCL 100 MG TAB PO SCH (08:47)
[2023-04-23] MEDS: GABAPENTIN 100 MG CAP PO SCH ×2 (08:47→21:30)
[2023-04-23] MEDS: FOLIC ACID 1 MG TAB PO SCH (08:48)
[2023-04-23] MEDS: MUPIROCIN 2% OINT 15gm or 22gm FOR MRSA NARES EACHNOSTRI SCH ×2 (08:48→21:31)
[2023-04-23] MEDS: SODIUM CHLOR 0.9% PF (SALINE LOCK) 10ML VIAL/SYR IV SCH ×2 (08:48→21:33)
[2023-04-23] MEDS: LACTULOSE 20Gm/30ML SOLN PO SCH (08:48)
[2023-04-23] MEDS: VENLAFAXINE HCL 37.5MG TABLET PO SCH (08:49)
[2023-04-23] MEDS: NOREPINEPHRINE 8 MG/250ML KIT 250 ML IV SCH (10:30)
[2023-04-23] MEDS: ALBUMIN 25% 100 ML IV SCH ×2 (12:19→20:23)
[2023-04-23 14:06] LABS: Protein, Body Fluid 0.9 g/dL (.)
[2023-04-23] MEDS: MORPHINE SULFATE INJ 2 MG/ml SYRG IV PRN (18:05)
[2023-04-24] VITALS (100 sets, daily range): BP systolic 65–126; BP diastolic 31–79; PULSE 76–122; RESP 9–20; TEMP 96.9–97.6; O2SAT 87–99
[2023-04-24] MEDS: PIPERACILLIN-TAZOB 3.375GM 100 ML IV SCH ×5 (01:03→23:30)
[2023-04-24] MEDS: ALBUMIN 25% 100 ML IV SCH (03:49)
[2023-04-24] MEDS: HYDROcodone-ACET 5/325MG TAB PO PRN ×3 (03:53→18:19)
[2023-04-24 05:30] LABS: BUN/Creatinine Ratio 16.9 (10.0-20.0); Calcium 7.7 mg/dL (8.5-10.1)
[2023-04-24] MEDS: MIDODRINE HCL 10 MG TAB PO SCH ×3 (05:50→17:29)
[2023-04-24] MEDS: ALBUTEROL SULF 2.5 MG/0.5ML(0.5%) NEB SOLN NEB SCH ×3 (05:50→18:08)
[2023-04-24] MEDS: IPRATROPIUM BROM 0.5 MG/2.5ML INH SOL NEB SCH ×3 (05:50→18:08)
[2023-04-24] MEDS: OCTREOTIDE ACETATE 100 MCG/ML VL SUBCUT SCH ×3 (05:50→23:18)
[2023-04-24 05:55] LABS: Potassium 2.9 mmol/L (3.5-5.1)
[2023-04-24] MEDS: BUMETANIDE 1mg/4ml VIAL (0.25mg/ml) IV SCH ×2 (06:00→17:25)
[2023-04-24] MEDS ORDERED: POTASSIUM CHL 20 Meq TABLET PO ONE (06:15)
[2023-04-24] MEDS: PANTOPRAZOLE 40 MG TAB PO SCH (08:11)
[2023-04-24] MEDS: GABAPENTIN 100 MG CAP PO SCH ×2 (08:11→23:18)
[2023-04-24] MEDS: LACTULOSE 20Gm/30ML SOLN PO SCH (08:12)
[2023-04-24] MEDS: FOLIC ACID 1 MG TAB PO SCH (08:12)
[2023-04-24] MEDS: THIAMINE HCL 100 MG TAB PO SCH (08:12)
[2023-04-24] MEDS: MUPIROCIN 2% OINT 15gm or 22gm FOR MRSA NARES EACHNOSTRI SCH ×2 (08:12→22:00)
[2023-04-24] MEDS: VENLAFAXINE HCL 37.5MG TABLET PO SCH (08:12)
[2023-04-24] MEDS: MULTIPLE VITAMIN TAB PO SCH (08:12)
[2023-04-24] MEDS: SODIUM CHLOR 0.9% PF (SALINE LOCK) 10ML VIAL/SYR IV SCH ×2 (08:13→23:19)
[2023-04-24] MEDS ORDERED: POTASSIUM EFFERVESENT TAB 25 MEQ PO ONE (16:30)
[2023-04-24 16:37] LABS: Base Excess 4.6 mmol/L (-2.0-2.0)
[2023-04-24] MEDS: NOREPINEPHRINE 8 MG/250ML KIT 250 ML IV SCH (23:00)
[2023-04-25] VITALS (99 sets, daily range): BP systolic 78–129; BP diastolic 20–76; PULSE 67–116; RESP 8–27; TEMP 97–98.5; O2SAT 86–100
[2023-04-25] MEDS: HYDROcodone-ACET 5/325MG TAB PO PRN ×2 (01:00→18:29)
[2023-04-25] MEDS: NOREPINEPHRINE 8 MG/250ML KIT 250 ML IV SCH (01:31)
[2023-04-25 05:00] LABS: Basophils # (auto) 0.1 10 ^3/uL (0-0.2); Eosinophils % (auto) 1.1 % (0.0-7.0); Nucleated Red Blood Cells % 0.1 %
[2023-04-25 05:03] LABS: Basophils % (auto) 0.8 % (0.0-2.0); Eosinophils # (auto) 0.1 10 ^3/uL (0-0.8); Hematocrit 32.1 % (36.0-46.0); Lymphocytes # (auto) 2.6 10 ^3/uL (0.4-5.4); Lymphocytes % (auto) 19.6 % (10.0-50.0); Mean Corpuscular Hemoglobin 42.4 pg (28.0-32.0); Mean Corpuscular Hgb Conc. 34.2 g/dL (32.0-36.0); Monocytes # (auto) 1.5 10 ^3/uL (0-1.3); Monocytes % (auto) 11.2 % (0.0-12.0); Neutrophils % (auto) 67.3 % (37.0-80.0); Red Cell Distribution Width 15.6 % (11.8-14.3); White Blood Cell 13.3 10^3/uL (4.4-10.8)
[2023-04-25 05:19] LABS: Mean Corpuscular Volume 123.8 fL (80.0-100.0)
[2023-04-25 05:21] LABS: Albumin 2.2 g/dL (3.4-5.0); Calcium 7.9 mg/dL (8.5-10.1); Potassium 3.6 mmol/L (3.5-5.1)
[2023-04-25 05:24] LABS: BUN/Creatinine Ratio 13.2 (10.0-20.0); INR 1.31 (0.9-1.15); Partial Thromboplastin Time 32.5 SEC (24.5-34.5); Prothrombin Time 13.5 sec (9.3-11.8); Total Protein 6.2 g/dL (6.4-8.2)
[2023-04-25] MEDS: PIPERACILLIN-TAZOB 3.375GM 100 ML IV SCH (05:51)
[2023-04-25] MEDS: OCTREOTIDE ACETATE 100 MCG/ML VL SUBCUT SCH ×3 (05:51→22:38)
[2023-04-25] MEDS: MIDODRINE HCL 10 MG TAB PO SCH ×3 (05:52→18:27)
[2023-04-25] MEDS: BUMETANIDE 1mg/4ml VIAL (0.25mg/ml) IV SCH ×2 (05:52→18:27)
[2023-04-25] MEDS: IPRATROPIUM BROM 0.5 MG/2.5ML INH SOL NEB SCH ×3 (06:18→18:07)
[2023-04-25] MEDS: ALBUTEROL SULF 2.5 MG/0.5ML(0.5%) NEB SOLN NEB SCH ×3 (06:18→18:08)
[2023-04-25] MEDS ORDERED: VANCOMYCIN PER PHARMACY 0 MG IV SCH (10:00)
[2023-04-25] MEDS: VENLAFAXINE HCL 37.5MG TABLET PO SCH (10:00)
[2023-04-25] MEDS: LACTULOSE 20Gm/30ML SOLN PO SCH (10:21)
[2023-04-25] MEDS: MULTIPLE VITAMIN TAB PO SCH (10:21)
[2023-04-25] MEDS: SODIUM CHLOR 0.9% PF (SALINE LOCK) 10ML VIAL/SYR IV SCH ×2 (10:21→22:36)
[2023-04-25] MEDS: FOLIC ACID 1 MG TAB PO SCH (10:21)
[2023-04-25] MEDS: THIAMINE HCL 100 MG TAB PO SCH (10:21)
[2023-04-25] MEDS: GABAPENTIN 100 MG CAP PO SCH ×2 (10:21→22:35)
[2023-04-25] MEDS: PANTOPRAZOLE 40 MG TAB PO SCH (10:21)
[2023-04-25] MEDS: MUPIROCIN 2% OINT 15gm or 22gm FOR MRSA NARES EACHNOSTRI SCH ×2 (10:26→22:37)
[2023-04-25] MEDS: VANCOMYCIN 1GM/250ML 250 ML IV SCH ×3 (11:46→23:51)
[2023-04-25] MEDS ORDERED: cefTRIAXone 1GM/50ML D5W 50 ML IV ONE (14:00)
[2023-04-26] VITALS (98 sets, daily range): BP systolic 73–138; BP diastolic 33–88; PULSE 58–127; RESP 7–29; TEMP 97.8–98.6; O2SAT 87–100
[2023-04-26] MEDS: HYDROcodone-ACET 5/325MG TAB PO PRN ×3 (01:34→17:14)
[2023-04-26] MEDS: NOREPINEPHRINE 8 MG/250ML KIT 250 ML IV SCH (01:56)
[2023-04-26 04:19] LABS: Basophils # (auto) 0.1 10 ^3/uL (0-0.2); Eosinophils # (auto) 0.1 10 ^3/uL (0-0.8); Hematocrit 30.4 % (36.0-46.0); Hemoglobin 10.4 g/dL (12.2-16.2); Lymphocytes # (auto) 2.1 10 ^3/uL (0.4-5.4); Mean Corpuscular Hgb Conc. 34.3 g/dL (32.0-36.0); Monocytes # (auto) 1.3 10 ^3/uL (0-1.3); Red Blood Cells 2.47 10^6/uL (4.0-5.20)
[2023-04-26 04:22] LABS: Basophils % (auto) 0.8 % (0.0-2.0); Lymphocytes % (auto) 19.7 % (10.0-50.0); Mean Corpuscular Hemoglobin 42.3 pg (28.0-32.0); Mean Corpuscular Volume 123.4 fL (80.0-100.0); Monocytes % (auto) 12.7 % (0.0-12.0); Neutrophils # (auto) 6.9 10 ^3/uL (1.6-8.6); Neutrophils % (auto) 65.8 % (37.0-80.0); Red Cell Distribution Width 15.5 % (11.8-14.3); White Blood Cell 10.5 10^3/uL (4.4-10.8)
[2023-04-26 04:36] LABS: BUN/Creatinine Ratio 17.2 (10.0-20.0); Calcium 7.8 mg/dL (8.5-10.1)
[2023-04-26 04:48] LABS: Potassium 2.8 mmol/L (3.5-5.1)
[2023-04-26] MEDS: IPRATROPIUM BROM 0.5 MG/2.5ML INH SOL NEB SCH ×3 (06:11→18:21)
[2023-04-26] MEDS: ALBUTEROL SULF 2.5 MG/0.5ML(0.5%) NEB SOLN NEB SCH ×3 (06:11→18:20)
[2023-04-26] MEDS: BUMETANIDE 1mg/4ml VIAL (0.25mg/ml) IV SCH (06:30)
[2023-04-26] MEDS: MIDODRINE HCL 10 MG TAB PO SCH ×3 (06:30→18:38)
[2023-04-26] MEDS: OCTREOTIDE ACETATE 100 MCG/ML VL SUBCUT SCH ×3 (06:31→21:49)
[2023-04-26] MEDS: VENLAFAXINE HCL 37.5MG TABLET PO SCH (08:59)
[2023-04-26] MEDS: POTASSIUM CHL 20MEQ/100ML 100 ML IV SCH ×3 (08:59→12:09)
[2023-04-26] MEDS: SODIUM CHLOR 0.9% PF (SALINE LOCK) 10ML VIAL/SYR IV SCH ×2 (09:00→21:48)
[2023-04-26] MEDS: MULTIPLE VITAMIN TAB PO SCH (09:00)
[2023-04-26] MEDS: cefTRIAXone 1GM/50ML D5W 50 ML IV SCH (09:00)
[2023-04-26] MEDS: THIAMINE HCL 100 MG TAB PO SCH (09:00)
[2023-04-26] MEDS: MUPIROCIN 2% OINT 15gm or 22gm FOR MRSA NARES EACHNOSTRI SCH ×2 (09:00→21:48)
[2023-04-26] MEDS: FOLIC ACID 1 MG TAB PO SCH (09:01)
[2023-04-26] MEDS: PANTOPRAZOLE 40 MG TAB PO SCH (09:01)
[2023-04-26] MEDS: GABAPENTIN 100 MG CAP PO SCH ×2 (09:03→21:48)
[2023-04-26] MEDS: LACTULOSE 20Gm/30ML SOLN PO SCH (09:07)
[2023-04-26] MEDS: VANCOMYCIN 1GM/250ML 250 ML IV SCH (12:24)
[2023-04-26] MEDS: FUROSEMIDE INJECTION 100 MG in D5W 5% 100 ML IV SCH ×3 (13:03→21:57)
[2023-04-27] VITALS (98 sets, daily range): BP systolic 77–148; BP diastolic 33–89; PULSE 61–97; RESP 8–25; TEMP 96.8–97.9; O2SAT 89–100
[2023-04-27] MEDS: VANCOMYCIN 1GM/250ML 250 ML IV SCH ×3 (00:40→23:33)
[2023-04-27] MEDS: HYDROcodone-ACET 5/325MG TAB PO PRN ×3 (00:43→18:22)
[2023-04-27 04:18] LABS: Hemoglobin 10.6 g/dL (12.2-16.2); Mean Corpuscular Hgb Conc. 34.5 g/dL (32.0-36.0); Neutrophils # (auto) 5.6 10 ^3/uL (1.6-8.6); White Blood Cell 8.6 10^3/uL (4.4-10.8)
[2023-04-27 04:19] LABS: Basophils # (auto) 0 10 ^3/uL (0-0.2); Basophils % (auto) 0.5 % (0.0-2.0); Eosinophils # (auto) 0.2 10 ^3/uL (0-0.8); Hematocrit 30.7 % (36.0-46.0); Lymphocytes # (auto) 1.8 10 ^3/uL (0.4-5.4); Lymphocytes % (auto) 21.2 % (10.0-50.0); Mean Corpuscular Hemoglobin 42.4 pg (28.0-32.0); Mean Corpuscular Volume 122.9 fL (80.0-100.0); Monocytes % (auto) 11.4 % (0.0-12.0); Neutrophils % (auto) 64.9 % (37.0-80.0); Nucleated Red Blood Cells % 0.2 %; Red Cell Distribution Width 15.4 % (11.8-14.3)
[2023-04-27 04:37] LABS: BUN/Creatinine Ratio 15.5 (10.0-20.0); Calcium 7.6 mg/dL (8.5-10.1)
[2023-04-27 04:48] LABS: Potassium 2.7 mmol/L (3.5-5.1)
[2023-04-27] MEDS: OCTREOTIDE ACETATE 100 MCG/ML VL SUBCUT SCH ×3 (05:51→21:20)
[2023-04-27] MEDS: MIDODRINE HCL 10 MG TAB PO SCH ×3 (05:51→18:21)
[2023-04-27] MEDS: POTASSIUM CHL 20MEQ/100ML 100 ML IV SCH ×3 (05:58→10:32)
[2023-04-27] MEDS: IPRATROPIUM BROM 0.5 MG/2.5ML INH SOL NEB SCH ×3 (06:12→18:47)
[2023-04-27] MEDS: ALBUTEROL SULF 2.5 MG/0.5ML(0.5%) NEB SOLN NEB SCH ×3 (06:12→18:47)
[2023-04-27] MEDS: FUROSEMIDE INJECTION 100 MG in D5W 5% 100 ML IV SCH ×2 (06:14→16:45)
[2023-04-27] MEDS ORDERED: POTASSIUM EFFERVESENT TAB 25 MEQ PO ONE (08:30)
[2023-04-27] MEDS: LACTULOSE 20Gm/30ML SOLN PO SCH (09:23)
[2023-04-27] MEDS: cefTRIAXone 1GM/50ML D5W 50 ML IV SCH (09:24)
[2023-04-27] MEDS: SODIUM CHLOR 0.9% PF (SALINE LOCK) 10ML VIAL/SYR IV SCH ×2 (09:24→21:19)
[2023-04-27] MEDS: VENLAFAXINE HCL 37.5MG TABLET PO SCH (09:24)
[2023-04-27] MEDS: MULTIPLE VITAMIN TAB PO SCH (09:25)
[2023-04-27] MEDS: THIAMINE HCL 100 MG TAB PO SCH (09:25)
[2023-04-27] MEDS: PANTOPRAZOLE 40 MG TAB PO SCH (09:25)
[2023-04-27] MEDS: FOLIC ACID 1 MG TAB PO SCH (09:26)
[2023-04-27] MEDS: GABAPENTIN 100 MG CAP PO SCH ×2 (09:26→21:19)
[2023-04-27] MEDS: NOREPINEPHRINE 8 MG/250ML KIT 250 ML IV SCH (10:35)
[2023-04-27] MEDS: ONDANSETRON HCL 4 MG/2 ML VIAL IV PRN (10:59)
[2023-04-28] VITALS (100 sets, daily range): BP systolic 79–126; BP diastolic 44–82; PULSE 73–105; RESP 9–25; TEMP 96.9–98.6; O2SAT 88–98
[2023-04-28] MEDS: FUROSEMIDE INJECTION 100 MG in D5W 5% 100 ML IV SCH (03:21)
[2023-04-28 04:19] LABS: Basophils # (auto) 0.1 10 ^3/uL (0-0.2); Eosinophils # (auto) 0.2 10 ^3/uL (0-0.8); Hematocrit 32.3 % (36.0-46.0); Monocytes # (auto) 1.1 10 ^3/uL (0-1.3); Red Blood Cells 2.63 10^6/uL (4.0-5.20); White Blood Cell 10.5 10^3/uL (4.4-10.8)
[2023-04-28 04:21] LABS: Basophils % (auto) 1.1 % (0.0-2.0); Lymphocytes % (auto) 19.2 % (10.0-50.0); Mean Corpuscular Hgb Conc. 34.1 g/dL (32.0-36.0); Mean Corpuscular Volume 123.2 fL (80.0-100.0); Monocytes % (auto) 10.4 % (0.0-12.0); Neutrophils % (auto) 67.3 % (37.0-80.0); Nucleated Red Blood Cells % 0.1 %; Red Cell Distribution Width 15.2 % (11.8-14.3)
[2023-04-28 04:38] LABS: Albumin 1.7 g/dL (3.4-5.0); Calcium 7.3 mg/dL (8.5-10.1); Potassium 3.2 mmol/L (3.5-5.1)
[2023-04-28 04:40] LABS: Platelet Estimate Decreased
[2023-04-28 04:41] LABS: Macrocytosis Marked
[2023-04-28 04:43] LABS: BUN/Creatinine Ratio 9.7 (10.0-20.0); Bilirubin, Total 2.8 mg/dL (0.2-1.0); Total Protein 5.8 g/dL (6.4-8.2)
[2023-04-28] MEDS: MIDODRINE HCL 10 MG TAB PO SCH ×3 (05:52→18:05)
[2023-04-28] MEDS: OCTREOTIDE ACETATE 100 MCG/ML VL SUBCUT SCH ×3 (05:52→22:04)
[2023-04-28] MEDS: ALBUTEROL SULF 2.5 MG/0.5ML(0.5%) NEB SOLN NEB SCH ×3 (06:45→18:30)
[2023-04-28] MEDS: IPRATROPIUM BROM 0.5 MG/2.5ML INH SOL NEB SCH ×3 (06:45→18:30)
[2023-04-28] MEDS ORDERED: POTASSIUM CHL 20MEQ/100ML 100 ML IV ONE (06:47)
[2023-04-28] MEDS ORDERED: SODIUM CHLORIDE 0.9% 500 ML IV ONE (08:45)
[2023-04-28] MEDS: cefTRIAXone 1GM/50ML D5W 50 ML IV SCH (09:05)
[2023-04-28] MEDS: HYDROcodone-ACET 5/325MG TAB PO PRN ×2 (09:06→22:04)
[2023-04-28] MEDS: POTASSIUM CHL 20MEQ/100ML 100 ML IV SCH ×3 (09:06→12:28)
[2023-04-28] MEDS: MUPIROCIN 2% OINT 15gm or 22gm FOR MRSA NARES EACHNOSTRI SCH ×2 (09:09→22:01)
[2023-04-28] MEDS: FOLIC ACID 1 MG TAB PO SCH (10:38)
[2023-04-28] MEDS: SODIUM CHLOR 0.9% PF (SALINE LOCK) 10ML VIAL/SYR IV SCH ×2 (10:38→22:02)
[2023-04-28] MEDS: LACTULOSE 20Gm/30ML SOLN PO SCH ×2 (10:39→22:02)
[2023-04-28] MEDS: THIAMINE HCL 100 MG TAB PO SCH (10:40)
[2023-04-28] MEDS: VENLAFAXINE HCL 37.5MG TABLET PO SCH (10:40)
[2023-04-28] MEDS: MULTIPLE VITAMIN TAB PO SCH (10:40)
[2023-04-28] MEDS: PANTOPRAZOLE 40 MG TAB PO SCH (10:41)
[2023-04-28] MEDS: GABAPENTIN 100 MG CAP PO SCH ×2 (10:41→22:02)
[2023-04-29] VITALS (101 sets, daily range): BP systolic 80–120; BP diastolic 53–85; PULSE 74–114; RESP 8–22; TEMP 97.9–98.9; O2SAT 88–99
[2023-04-29] MEDS: NOREPINEPHRINE 8 MG/250ML KIT 250 ML IV SCH ×2 (02:30→23:00)
[2023-04-29 04:23] LABS: Basophils # (auto) 0.1 10 ^3/uL (0-0.2); Basophils % (auto) 1.2 % (0.0-2.0); Eosinophils # (auto) 0.2 10 ^3/uL (0-0.8); Eosinophils % (auto) 1.7 % (0.0-7.0); Hemoglobin 11.4 g/dL (12.2-16.2); Lymphocytes # (auto) 2.5 10 ^3/uL (0.4-5.4); Lymphocytes % (auto) 20.7 % (10.0-50.0); Mean Corpuscular Hemoglobin 41.2 pg (28.0-32.0); Mean Corpuscular Hgb Conc. 33.5 g/dL (32.0-36.0); Mean Corpuscular Volume 122.9 fL (80.0-100.0); Monocytes # (auto) 1.1 10 ^3/uL (0-1.3); Monocytes % (auto) 9.6 % (0.0-12.0); Neutrophils # (auto) 7.9 10 ^3/uL (1.6-8.6); Neutrophils % (auto) 66.8 % (37.0-80.0); Nucleated Red Blood Cells % 0.1 %; Red Blood Cells 2.76 10^6/uL (4.0-5.20); Red Cell Distribution Width 15.3 % (11.8-14.3); White Blood Cell 11.9 10^3/uL (4.4-10.8)
[2023-04-29 04:38] LABS: INR 1.33 (0.9-1.15); Prothrombin Time 13.7 sec (9.3-11.8)
[2023-04-29 04:42] LABS: Albumin 1.8 g/dL (3.4-5.0); Calcium 7.5 mg/dL (8.5-10.1)
[2023-04-29 04:47] LABS: BUN/Creatinine Ratio 8.7 (10.0-20.0); Bilirubin, Total 2.9 mg/dL (0.2-1.0); Total Protein 6.3 g/dL (6.4-8.2)
[2023-04-29] MEDS: OCTREOTIDE ACETATE 100 MCG/ML VL SUBCUT SCH ×3 (06:05→21:24)
[2023-04-29] MEDS: MIDODRINE HCL 10 MG TAB PO SCH ×3 (06:05→19:32)
[2023-04-29] MEDS: IPRATROPIUM BROM 0.5 MG/2.5ML INH SOL NEB SCH ×3 (06:15→18:26)
[2023-04-29] MEDS: ALBUTEROL SULF 2.5 MG/0.5ML(0.5%) NEB SOLN NEB SCH ×3 (06:15→18:26)
[2023-04-29] MEDS: HYDROcodone-ACET 5/325MG TAB PO PRN ×3 (06:42→21:24)
[2023-04-29] MEDS: FOLIC ACID 1 MG TAB PO SCH (10:47)
[2023-04-29] MEDS: MULTIPLE VITAMIN TAB PO SCH (10:47)
[2023-04-29] MEDS: LACTULOSE 20Gm/30ML SOLN PO SCH ×2 (10:47→21:23)
[2023-04-29] MEDS: SODIUM CHLOR 0.9% PF (SALINE LOCK) 10ML VIAL/SYR IV SCH ×2 (10:47→21:23)
[2023-04-29] MEDS: PANTOPRAZOLE 40 MG TAB PO SCH (10:47)
[2023-04-29] MEDS: THIAMINE HCL 100 MG TAB PO SCH (10:47)
[2023-04-29] MEDS: VENLAFAXINE HCL 37.5MG TABLET PO SCH (10:47)
[2023-04-29] MEDS: GABAPENTIN 100 MG CAP PO SCH ×2 (10:53→21:23)
[2023-04-29] MEDS: cefTRIAXone 1GM/50ML D5W 50 ML IV SCH (10:53)
[2023-04-29] MEDS: MUPIROCIN 2% OINT 15gm or 22gm FOR MRSA NARES EACHNOSTRI SCH ×2 (10:54→21:23)
[2023-04-29] MEDS: ALBUMIN 25% 50 ML IV SCH ×2 (12:10→19:33)
[2023-04-30] VITALS (51 sets, daily range): BP systolic 79–121; BP diastolic 54–85; PULSE 76–94; RESP 7–20; TEMP 97–98.8; O2SAT 90–99
[2023-04-30] MEDS: HYDROcodone-ACET 5/325MG TAB PO PRN ×3 (03:36→21:50)
[2023-04-30 04:20] LABS: Basophils # (auto) 0.1 10 ^3/uL (0-0.2); Nucleated Red Blood Cells % 0.1 %
[2023-04-30 04:23] LABS: Eosinophils # (auto) 0.1 10 ^3/uL (0-0.8); Eosinophils % (auto) 1.4 % (0.0-7.0); Hematocrit 30.6 % (36.0-46.0); Hemoglobin 10.5 g/dL (12.2-16.2); Lymphocytes % (auto) 21.8 % (10.0-50.0); Mean Corpuscular Hemoglobin 41.9 pg (28.0-32.0); Mean Corpuscular Hgb Conc. 34.3 g/dL (32.0-36.0); Monocytes # (auto) 0.7 10 ^3/uL (0-1.3); Monocytes % (auto) 8.2 % (0.0-12.0); Neutrophils # (auto) 6.1 10 ^3/uL (1.6-8.6); Neutrophils % (auto) 67.6 % (37.0-80.0); Red Blood Cells 2.51 10^6/uL (4.0-5.20); Red Cell Distribution Width 15.2 % (11.8-14.3)
[2023-04-30 04:36] LABS: Potassium 3.7 mmol/L (3.5-5.1)
[2023-04-30 04:41] LABS: BUN/Creatinine Ratio 9.4 (10.0-20.0); Calcium 7.5 mg/dL (8.5-10.1)
[2023-04-30] MEDS ORDERED: ALBUMIN 25% 50 ML IV ONE (05:52)
[2023-04-30] MEDS: MIDODRINE HCL 10 MG TAB PO SCH ×3 (05:55→18:14)
[2023-04-30] MEDS: ALBUMIN 25% 50 ML IV SCH (05:56)
[2023-04-30] MEDS: OCTREOTIDE ACETATE 100 MCG/ML VL SUBCUT SCH ×3 (05:56→22:34)
[2023-04-30] MEDS: ALBUTEROL SULF 2.5 MG/0.5ML(0.5%) NEB SOLN NEB SCH ×4 (06:23→22:43)
[2023-04-30] MEDS: IPRATROPIUM BROM 0.5 MG/2.5ML INH SOL NEB SCH ×4 (06:23→22:43)
[2023-04-30] MEDS: cefTRIAXone 1GM/50ML D5W 50 ML IV SCH (09:59)
[2023-04-30] MEDS: LACTULOSE 20Gm/30ML SOLN PO SCH ×2 (10:00→21:25)
[2023-04-30] MEDS: FOLIC ACID 1 MG TAB PO SCH (10:00)
[2023-04-30] MEDS: PANTOPRAZOLE 40 MG TAB PO SCH (10:00)
[2023-04-30] MEDS: VENLAFAXINE HCL 37.5MG TABLET PO SCH (10:00)
[2023-04-30] MEDS: MULTIPLE VITAMIN TAB PO SCH (10:00)
[2023-04-30] MEDS: GABAPENTIN 100 MG CAP PO SCH ×2 (10:00→21:25)
[2023-04-30] MEDS: THIAMINE HCL 100 MG TAB PO SCH (10:12)
[2023-04-30] MEDS: MUPIROCIN 2% OINT 15gm or 22gm FOR MRSA NARES EACHNOSTRI SCH ×2 (10:13→21:25)
[2023-04-30] MEDS: SODIUM CHLOR 0.9% PF (SALINE LOCK) 10ML VIAL/SYR IV SCH ×2 (10:13→21:25)
[2023-04-30] MEDS: ALBUTEROL SULF 2.5 MG/0.5ML(0.5%) NEB SOLN NEB PRN (16:09)
[2023-04-30] MEDS: IPRATROPIUM BROM 0.5 MG/2.5ML INH SOL NEB PRN (16:09)
[2023-05-01] VITALS (12 sets, daily range): BP systolic 91–111; BP diastolic 51–67; PULSE 71–106; RESP 16–18; TEMP 97.5–98.6; O2SAT 92–99
[2023-05-01] MEDS: MIDODRINE HCL 10 MG TAB PO SCH ×3 (05:21→17:59)
[2023-05-01] MEDS: OCTREOTIDE ACETATE 100 MCG/ML VL SUBCUT SCH ×3 (05:22→21:40)
[2023-05-01 05:46] LABS: Basophils # (auto) 0.1 10 ^3/uL (0-0.2); Basophils % (auto) 0.9 % (0.0-2.0); Eosinophils # (auto) 0.2 10 ^3/uL (0-0.8); Monocytes # (auto) 0.8 10 ^3/uL (0-1.3); Neutrophils # (auto) 6.4 10 ^3/uL (1.6-8.6); Nucleated Red Blood Cells % 0.1 %
[2023-05-01 05:47] LABS: Hematocrit 31.1 % (36.0-46.0); Hemoglobin 10.6 g/dL (12.2-16.2); Lymphocytes % (auto) 21.3 % (10.0-50.0); Mean Corpuscular Hemoglobin 41.7 pg (28.0-32.0); Mean Corpuscular Hgb Conc. 34.2 g/dL (32.0-36.0); Mean Corpuscular Volume 121.8 fL (80.0-100.0); Monocytes % (auto) 8.7 % (0.0-12.0); Neutrophils % (auto) 67.1 % (37.0-80.0); Red Blood Cells 2.55 10^6/uL (4.0-5.20); Red Cell Distribution Width 14.9 % (11.8-14.3); White Blood Cell 9.6 10^3/uL (4.4-10.8)
[2023-05-01 06:01] LABS: BUN/Creatinine Ratio 9.7 (10.0-20.0); Calcium 7.9 mg/dL (8.5-10.1); Potassium 3.4 mmol/L (3.5-5.1)
[2023-05-01] MEDS: IPRATROPIUM BROM 0.5 MG/2.5ML INH SOL NEB SCH ×3 (06:52→18:00)
[2023-05-01] MEDS: ALBUTEROL SULF 2.5 MG/0.5ML(0.5%) NEB SOLN NEB SCH ×3 (06:52→18:00)
[2023-05-01 07:00] LABS: Platelet Estimate Adequate
[2023-05-01 07:01] LABS: Macrocytosis Moderate; Stomatocytes Few
[2023-05-01 07:02] LABS: Hypochromia Slight
[2023-05-01] MEDS: HYDROcodone-ACET 5/325MG TAB PO PRN ×2 (07:23→13:39)
[2023-05-01] MEDS: cefTRIAXone 1GM/50ML D5W 50 ML IV SCH (10:01)
[2023-05-01] MEDS: THIAMINE HCL 100 MG TAB PO SCH (10:01)
[2023-05-01] MEDS: MULTIPLE VITAMIN TAB PO SCH (10:01)
[2023-05-01] MEDS: MUPIROCIN 2% OINT 15gm or 22gm FOR MRSA NARES EACHNOSTRI SCH ×2 (10:01→21:41)
[2023-05-01] MEDS: VENLAFAXINE HCL 37.5MG TABLET PO SCH (10:01)
[2023-05-01] MEDS: FOLIC ACID 1 MG TAB PO SCH (10:01)
[2023-05-01] MEDS: LACTULOSE 20Gm/30ML SOLN PO SCH ×2 (10:01→21:40)
[2023-05-01] MEDS: GABAPENTIN 100 MG CAP PO SCH ×2 (10:02→21:40)
[2023-05-01] MEDS: PANTOPRAZOLE 40 MG TAB PO SCH (10:02)
[2023-05-01] MEDS: SODIUM CHLOR 0.9% PF (SALINE LOCK) 10ML VIAL/SYR IV SCH ×2 (10:02→21:41)
[2023-05-01] MEDS ORDERED: ALBUMIN 25% 100 ML IV ONE (11:00)
[2023-05-01] MEDS ORDERED: FUROSEMIDE 20 MG/2 ML VIAL IV ONE (17:45)
[2023-05-01] MEDS: ALBUMIN 25% 50 ML IV SCH (20:12)
[2023-05-01] MEDS: OXYBUTYNIN CHL 5 MG TAB PO SCH (21:40)
[2023-05-01] MEDS ORDERED: POTASSIUM EFFERVESENT TAB 25 MEQ GT ONE (22:00)
[2023-05-02] VITALS (14 sets, daily range): BP systolic 95–115; BP diastolic 61–70; PULSE 75–126; RESP 18–20; TEMP 97.7–98.5; O2SAT 90–99
[2023-05-02] MEDS: HYDROcodone-ACET 5/325MG TAB PO PRN (03:21)
[2023-05-02] MEDS: ALBUMIN 25% 50 ML IV SCH ×2 (04:20→12:17)
[2023-05-02 05:03] LABS: Basophils # (auto) 0.1 10 ^3/uL (0-0.2); Eosinophils # (auto) 0.1 10 ^3/uL (0-0.8); Hematocrit 30.5 % (36.0-46.0); Hemoglobin 10.4 g/dL (12.2-16.2); Monocytes # (auto) 0.8 10 ^3/uL (0-1.3); White Blood Cell 9.7 10^3/uL (4.4-10.8)
[2023-05-02 05:05] LABS: Basophils % (auto) 0.8 % (0.0-2.0); Eosinophils % (auto) 1.3 % (0.0-7.0); Lymphocytes % (auto) 20.4 % (10.0-50.0); Mean Corpuscular Hemoglobin 41.5 pg (28.0-32.0); Mean Corpuscular Hgb Conc. 34.1 g/dL (32.0-36.0); Mean Corpuscular Volume 121.6 fL (80.0-100.0); Monocytes % (auto) 8.4 % (0.0-12.0); Neutrophils # (auto) 6.7 10 ^3/uL (1.6-8.6); Neutrophils % (auto) 69.1 % (37.0-80.0); Red Blood Cells 2.51 10^6/uL (4.0-5.20); Red Cell Distribution Width 15.2 % (11.8-14.3)
[2023-05-02] MEDS: MIDODRINE HCL 10 MG TAB PO SCH ×3 (05:11→19:11)
[2023-05-02] MEDS: OCTREOTIDE ACETATE 100 MCG/ML VL SUBCUT SCH ×3 (05:12→23:29)
[2023-05-02 05:26] LABS: Potassium 3.3 mmol/L (3.5-5.1)
[2023-05-02 05:31] LABS: BUN/Creatinine Ratio 8.2 (10.0-20.0); Calcium 8.3 mg/dL (8.5-10.1)
[2023-05-02] MEDS: IPRATROPIUM BROM 0.5 MG/2.5ML INH SOL NEB SCH ×3 (06:46→19:33)
[2023-05-02] MEDS: ALBUTEROL SULF 2.5 MG/0.5ML(0.5%) NEB SOLN NEB SCH ×3 (06:46→19:32)
[2023-05-02] MEDS: GABAPENTIN 100 MG CAP PO SCH ×2 (09:47→23:29)
[2023-05-02] MEDS: PANTOPRAZOLE 40 MG TAB PO SCH (09:47)
[2023-05-02] MEDS: FOLIC ACID 1 MG TAB PO SCH (09:48)
[2023-05-02] MEDS: MULTIPLE VITAMIN TAB PO SCH (09:48)
[2023-05-02] MEDS: VENLAFAXINE HCL 37.5MG TABLET PO SCH (09:48)
[2023-05-02] MEDS: SODIUM CHLOR 0.9% PF (SALINE LOCK) 10ML VIAL/SYR IV SCH ×2 (09:49→23:29)
[2023-05-02] MEDS: LACTULOSE 20Gm/30ML SOLN PO SCH ×2 (09:49→23:29)
[2023-05-02] MEDS: cefTRIAXone 1GM/50ML D5W 50 ML IV SCH (09:49)
[2023-05-02] MEDS: OXYBUTYNIN CHL 5 MG TAB PO SCH ×2 (09:49→23:29)
[2023-05-02] MEDS: MUPIROCIN 2% OINT 15gm or 22gm FOR MRSA NARES EACHNOSTRI SCH ×2 (09:49→23:36)
[2023-05-02] MEDS ORDERED: FUROSEMIDE 20 MG/2 ML VIAL IV ONE (12:00)
[2023-05-02] MEDS: THIAMINE HCL 100 MG TAB PO SCH (12:16)
[2023-05-02] MEDS: ALBUMIN 25% 100 ML IV SCH ×2 (13:30→23:27)
[2023-05-02] MEDS: POTASSIUM CHL 20MEQ/100ML 100 ML IV SCH ×2 (14:32→16:15)
[2023-05-02] MEDS: acetaZOLAMIDE SODIUM 500 MG VL IV SCH ×2 (15:39→23:26)
[2023-05-02] MEDS: DOPamine 1600MCG/ML D5W 250 ML IV SCH (18:57)
[2023-05-03] VITALS (14 sets, daily range): BP systolic 110–133; BP diastolic 70–86; PULSE 82–122; RESP 18–20; TEMP 97.7–98.4; O2SAT 93–100
[2023-05-03] MEDS: ALBUMIN 25% 100 ML IV SCH ×3 (05:30→22:03)
[2023-05-03] MEDS: MIDODRINE HCL 10 MG TAB PO SCH ×3 (06:00→17:56)
[2023-05-03] MEDS: ALBUTEROL SULF 2.5 MG/0.5ML(0.5%) NEB SOLN NEB SCH ×3 (06:25→18:00)
[2023-05-03] MEDS: IPRATROPIUM BROM 0.5 MG/2.5ML INH SOL NEB SCH ×3 (06:25→18:00)
[2023-05-03] MEDS: OCTREOTIDE ACETATE 100 MCG/ML VL SUBCUT SCH ×3 (06:59→22:08)
[2023-05-03] MEDS: cefTRIAXone 1GM/50ML D5W 50 ML IV SCH (09:02)
[2023-05-03] MEDS: FUROSEMIDE 20 MG/2 ML VIAL IV SCH (09:55)
[2023-05-03] MEDS: acetaZOLAMIDE SODIUM 500 MG VL IV SCH ×2 (09:55→22:10)
[2023-05-03] MEDS: FOLIC ACID 1 MG TAB PO SCH (09:56)
[2023-05-03] MEDS: THIAMINE HCL 100 MG TAB PO SCH (09:56)
[2023-05-03] MEDS: LACTULOSE 20Gm/30ML SOLN PO SCH (09:56)
[2023-05-03] MEDS: GABAPENTIN 100 MG CAP PO SCH ×2 (09:56→22:11)
[2023-05-03] MEDS: PANTOPRAZOLE 40 MG TAB PO SCH (09:56)
[2023-05-03] MEDS: OXYBUTYNIN CHL 5 MG TAB PO SCH ×2 (09:56→22:11)
[2023-05-03] MEDS: MULTIPLE VITAMIN TAB PO SCH (09:56)
[2023-05-03] MEDS: SODIUM CHLOR 0.9% PF (SALINE LOCK) 10ML VIAL/SYR IV SCH ×2 (09:57→22:08)
[2023-05-03] MEDS: VENLAFAXINE HCL 37.5MG TABLET PO SCH (09:59)
[2023-05-03 12:16] LABS: Basophils # (auto) 0.1 10 ^3/uL (0-0.2); Eosinophils # (auto) 0.1 10 ^3/uL (0-0.8); Lymphocytes % (auto) 19.8 % (10.0-50.0); Monocytes # (auto) 0.8 10 ^3/uL (0-1.3); Monocytes % (auto) 7.8 % (0.0-12.0); Red Blood Cells 2.54 10^6/uL (4.0-5.20)
[2023-05-03 12:18] LABS: Basophils % (auto) 0.7 % (0.0-2.0); Eosinophils % (auto) 1.1 % (0.0-7.0); Hematocrit 31.3 % (36.0-46.0); Hemoglobin 10.4 g/dL (12.2-16.2); Lymphocytes # (auto) 2.1 10 ^3/uL (0.4-5.4); Mean Corpuscular Hgb Conc. 33.2 g/dL (32.0-36.0); Mean Corpuscular Volume 123.6 fL (80.0-100.0); Neutrophils # (auto) 7.4 10 ^3/uL (1.6-8.6); Neutrophils % (auto) 70.6 % (37.0-80.0); Red Cell Distribution Width 15.5 % (11.8-14.3); White Blood Cell 10.5 10^3/uL (4.4-10.8)
[2023-05-03 12:33] LABS: BUN/Creatinine Ratio 9.3 (10.0-20.0); Calcium 8.3 mg/dL (8.5-10.1); Potassium 3.5 mmol/L (3.5-5.1)
[2023-05-03] MEDS: DOPamine 1600MCG/ML D5W 250 ML IV SCH (13:30)
[2023-05-04] VITALS (15 sets, daily range): BP systolic 93–125; BP diastolic 53–85; PULSE 87–116; RESP 16–20; TEMP 97.3–98.1; O2SAT 93–100
[2023-05-04] MEDS: HYDROcodone-ACET 5/325MG TAB PO PRN (02:40)
[2023-05-04] MEDS: DOPamine 1600MCG/ML D5W 250 ML IV SCH (02:52)
[2023-05-04 05:33] LABS: Basophils # (auto) 0.1 10 ^3/uL (0-0.2); Basophils % (auto) 0.9 % (0.0-2.0); Eosinophils # (auto) 0.2 10 ^3/uL (0-0.8); Hemoglobin 10.6 g/dL (12.2-16.2); Lymphocytes # (auto) 1.8 10 ^3/uL (0.4-5.4); Red Blood Cells 2.58 10^6/uL (4.0-5.20)
[2023-05-04] MEDS: MIDODRINE HCL 10 MG TAB PO SCH ×3 (05:35→17:34)
[2023-05-04] MEDS: OCTREOTIDE ACETATE 100 MCG/ML VL SUBCUT SCH ×3 (05:36→22:05)
[2023-05-04 05:38] LABS: Eosinophils % (auto) 1.9 % (0.0-7.0); Lymphocytes % (auto) 19.9 % (10.0-50.0); Mean Corpuscular Hemoglobin 41.1 pg (28.0-32.0); Mean Corpuscular Hgb Conc. 34.1 g/dL (32.0-36.0); Mean Corpuscular Volume 120.4 fL (80.0-100.0); Monocytes # (auto) 0.9 10 ^3/uL (0-1.3); Monocytes % (auto) 9.7 % (0.0-12.0); Neutrophils # (auto) 6.1 10 ^3/uL (1.6-8.6); Neutrophils % (auto) 67.6 % (37.0-80.0); Nucleated Red Blood Cells % 0.1 %; Red Cell Distribution Width 14.8 % (11.8-14.3); White Blood Cell 9.1 10^3/uL (4.4-10.8)
[2023-05-04 06:14] LABS: BUN/Creatinine Ratio 11.6 (10.0-20.0); Calcium 8.3 mg/dL (8.5-10.1)
[2023-05-04] MEDS: ALBUTEROL SULF 2.5 MG/0.5ML(0.5%) NEB SOLN NEB SCH ×3 (06:48→18:01)
[2023-05-04] MEDS: IPRATROPIUM BROM 0.5 MG/2.5ML INH SOL NEB SCH ×3 (06:48→18:01)
[2023-05-04] MEDS: cefTRIAXone 1GM/50ML D5W 50 ML IV SCH (08:38)
[2023-05-04] MEDS: PANTOPRAZOLE 40 MG TAB PO SCH (09:31)
[2023-05-04] MEDS: OXYBUTYNIN CHL 5 MG TAB PO SCH ×2 (09:31→22:03)
[2023-05-04] MEDS: LACTULOSE 20Gm/30ML SOLN PO SCH (09:31)
[2023-05-04] MEDS: MULTIPLE VITAMIN TAB PO SCH (09:31)
[2023-05-04] MEDS: THIAMINE HCL 100 MG TAB PO SCH (09:32)
[2023-05-04] MEDS: FOLIC ACID 1 MG TAB PO SCH (09:32)
[2023-05-04] MEDS: GABAPENTIN 100 MG CAP PO SCH ×2 (09:32→22:04)
[2023-05-04] MEDS: FUROSEMIDE 20 MG/2 ML VIAL IV SCH ×2 (09:36→10:49)
[2023-05-04] MEDS: VENLAFAXINE HCL 37.5MG TABLET PO SCH (09:36)
[2023-05-04] MEDS: SODIUM CHLOR 0.9% PF (SALINE LOCK) 10ML VIAL/SYR IV SCH ×2 (09:37→22:03)
[2023-05-04] MEDS ORDERED: metOLazone 5 MG TAB PO ONE (10:30)
[2023-05-04] MEDS ORDERED: POTASSIUM EFFERVESENT TAB 25 MEQ PO ONE (12:15)
[2023-05-05] VITALS (13 sets, daily range): BP systolic 96–138; BP diastolic 54–93; PULSE 82–120; RESP 12–20; TEMP 97.2–98.8; O2SAT 91–99
[2023-05-05] MEDS: MIDODRINE HCL 10 MG TAB PO SCH ×3 (05:34→17:33)
[2023-05-05] MEDS: OCTREOTIDE ACETATE 100 MCG/ML VL SUBCUT SCH ×3 (05:35→21:47)
[2023-05-05 06:31] LABS: BUN/Creatinine Ratio 15.4 (10.0-20.0); Calcium 8.3 mg/dL (8.5-10.1); Potassium 3.3 mmol/L (3.5-5.1)
[2023-05-05 06:36] LABS: Bilirubin, Total 2.2 mg/dL (0.2-1.0); Phosphorus 4.6 mg/dL (2.5-4.90); Total Protein 6.8 g/dL (6.4-8.2)
[2023-05-05] MEDS: IPRATROPIUM BROM 0.5 MG/2.5ML INH SOL NEB SCH ×2 (06:39→12:39)
[2023-05-05] MEDS: ALBUTEROL SULF 2.5 MG/0.5ML(0.5%) NEB SOLN NEB SCH ×2 (06:40→12:39)
[2023-05-05] MEDS: SODIUM CHLOR 0.9% PF (SALINE LOCK) 10ML VIAL/SYR IV SCH ×2 (09:03→21:47)
[2023-05-05] MEDS: FUROSEMIDE 20 MG/2 ML VIAL IV SCH (09:03)
[2023-05-05] MEDS: LACTULOSE 20Gm/30ML SOLN PO SCH (09:03)
[2023-05-05] MEDS: cefTRIAXone 1GM/50ML D5W 50 ML IV SCH (09:03)
[2023-05-05] MEDS: OXYBUTYNIN CHL 5 MG TAB PO SCH ×2 (09:04→21:47)
[2023-05-05] MEDS: FOLIC ACID 1 MG TAB PO SCH (09:04)
[2023-05-05] MEDS: PANTOPRAZOLE 40 MG TAB PO SCH (09:04)
[2023-05-05] MEDS: GABAPENTIN 100 MG CAP PO SCH ×2 (09:04→21:47)
[2023-05-05] MEDS: VENLAFAXINE HCL 37.5MG TABLET PO SCH (09:04)
[2023-05-05] MEDS: THIAMINE HCL 100 MG TAB PO SCH (09:04)
[2023-05-05] MEDS: MULTIPLE VITAMIN TAB PO SCH (09:04)
[2023-05-05] MEDS ORDERED: POTASSIUM CHL 20 Meq TABLET PO ONE (10:15)
[2023-05-05] MEDS ORDERED: POTASSIUM EFFERVESENT TAB 25 MEQ PO ONE (12:30)
[2023-05-05] MEDS: DOPamine 1600MCG/ML D5W 250 ML IV SCH (13:00)
[2023-05-06] VITALS (13 sets, daily range): BP systolic 94–117; BP diastolic 40–90; PULSE 68–117; RESP 15–20; TEMP 97.7–98.7; O2SAT 85–99
[2023-05-06] MEDS: MIDODRINE HCL 10 MG TAB PO SCH ×3 (05:50→18:21)
[2023-05-06] MEDS: OCTREOTIDE ACETATE 100 MCG/ML VL SUBCUT SCH (05:52)
[2023-05-06] MEDS: IPRATROPIUM BROM 0.5 MG/2.5ML INH SOL NEB SCH ×3 (07:06→18:10)
[2023-05-06] MEDS: ALBUTEROL SULF 2.5 MG/0.5ML(0.5%) NEB SOLN NEB SCH ×3 (07:06→18:10)
[2023-05-06] MEDS ORDERED: POTASSIUM EFFERVESENT TAB 25 MEQ PO ONE (10:15)
[2023-05-06] MEDS: FUROSEMIDE 20 MG/2 ML VIAL IV SCH (10:46)
[2023-05-06] MEDS: SODIUM CHLOR 0.9% PF (SALINE LOCK) 10ML VIAL/SYR IV SCH ×2 (10:47→21:47)
[2023-05-06] MEDS: LACTULOSE 20Gm/30ML SOLN PO SCH (10:48)
[2023-05-06] MEDS: FOLIC ACID 1 MG TAB PO SCH (10:49)
[2023-05-06] MEDS: PANTOPRAZOLE 40 MG TAB PO SCH (10:49)
[2023-05-06] MEDS: OXYBUTYNIN CHL 5 MG TAB PO SCH ×2 (10:49→21:45)
[2023-05-06] MEDS: VENLAFAXINE HCL 37.5MG TABLET PO SCH (10:49)
[2023-05-06] MEDS: THIAMINE HCL 100 MG TAB PO SCH (10:49)
[2023-05-06] MEDS: MULTIPLE VITAMIN TAB PO SCH (10:49)
[2023-05-06] MEDS: GABAPENTIN 100 MG CAP PO SCH (21:45)
[2023-05-07] VITALS (13 sets, daily range): BP systolic 90–104; BP diastolic 52–62; PULSE 68–87; RESP 16–21; TEMP 97.5–97.7; O2SAT 90–100
[2023-05-07 05:11] LABS: Basophils # (auto) 0.1 10 ^3/uL (0-0.2); Eosinophils # (auto) 0.2 10 ^3/uL (0-0.8); Hemoglobin 10.4 g/dL (12.2-16.2); Lymphocytes # (auto) 2.4 10 ^3/uL (0.4-5.4); Nucleated Red Blood Cells % 0.1 %
[2023-05-07 05:12] LABS: Basophils % (auto) 0.5 % (0.0-2.0); Hematocrit 30.9 % (36.0-46.0); Lymphocytes % (auto) 21.8 % (10.0-50.0); Mean Corpuscular Hemoglobin 39.9 pg (28.0-32.0); Mean Corpuscular Hgb Conc. 33.6 g/dL (32.0-36.0); Mean Corpuscular Volume 118.5 fL (80.0-100.0); Monocytes # (auto) 0.9 10 ^3/uL (0-1.3); Monocytes % (auto) 8.4 % (0.0-12.0); Neutrophils # (auto) 7.3 10 ^3/uL (1.6-8.6); Neutrophils % (auto) 67.3 % (37.0-80.0); Red Cell Distribution Width 14.4 % (11.8-14.3); White Blood Cell 10.8 10^3/uL (4.4-10.8)
[2023-05-07] MEDS: MIDODRINE HCL 10 MG TAB PO SCH ×3 (05:32→17:13)
[2023-05-07 05:39] LABS: Calcium 8.3 mg/dL (8.7-10.4); Potassium 3.3 mmol/L (3.5-5.1)
[2023-05-07 05:43] LABS: BUN/Creatinine Ratio 15.2 (10.0-20.0)
[2023-05-07] MEDS: ALBUTEROL SULF 2.5 MG/0.5ML(0.5%) NEB SOLN NEB SCH ×3 (06:36→17:48)
[2023-05-07] MEDS: IPRATROPIUM BROM 0.5 MG/2.5ML INH SOL NEB SCH ×3 (06:36→17:48)
[2023-05-07] MEDS: LACTULOSE 20Gm/30ML SOLN PO SCH (10:00)
[2023-05-07] MEDS: FUROSEMIDE 20 MG/2 ML VIAL IV SCH (10:20)
[2023-05-07] MEDS: THIAMINE HCL 100 MG TAB PO SCH (10:20)
[2023-05-07] MEDS: SODIUM CHLOR 0.9% PF (SALINE LOCK) 10ML VIAL/SYR IV SCH ×2 (10:20→22:23)
[2023-05-07] MEDS: PANTOPRAZOLE 40 MG TAB PO SCH (10:20)
[2023-05-07] MEDS: OXYBUTYNIN CHL 5 MG TAB PO SCH ×2 (10:20→22:22)
[2023-05-07] MEDS: MULTIPLE VITAMIN TAB PO SCH (10:20)
[2023-05-07] MEDS: GABAPENTIN 100 MG CAP PO SCH ×2 (10:20→22:22)
[2023-05-07] MEDS: FOLIC ACID 1 MG TAB PO SCH (10:21)
[2023-05-07] MEDS: VENLAFAXINE HCL 37.5MG TABLET PO SCH (10:32)
[2023-05-07] MEDS ORDERED: POTASSIUM CHL 20 Meq TABLET PO ONE (11:45)
[2023-05-08] VITALS (10 sets, daily range): BP systolic 89–98; BP diastolic 56–66; PULSE 71–89; RESP 18; TEMP 97.5–98.5; O2SAT 90–94
[2023-05-08] MEDS: MIDODRINE HCL 10 MG TAB PO SCH ×2 (05:44→11:55)
[2023-05-08] MEDS: ALBUTEROL SULF 2.5 MG/0.5ML(0.5%) NEB SOLN NEB SCH ×2 (06:29→14:13)
[2023-05-08] MEDS: IPRATROPIUM BROM 0.5 MG/2.5ML INH SOL NEB SCH ×2 (06:29→14:13)
[2023-05-08] MEDS: SODIUM CHLOR 0.9% PF (SALINE LOCK) 10ML VIAL/SYR IV SCH (09:03)
[2023-05-08] MEDS: LACTULOSE 20Gm/30ML SOLN PO SCH (09:04)
[2023-05-08] MEDS: FOLIC ACID 1 MG TAB PO SCH (09:04)
[2023-05-08] MEDS: FUROSEMIDE 20 MG/2 ML VIAL IV SCH (09:04)
[2023-05-08] MEDS: MULTIPLE VITAMIN TAB PO SCH (09:04)
[2023-05-08] MEDS: PANTOPRAZOLE 40 MG TAB PO SCH (09:05)
[2023-05-08] MEDS: THIAMINE HCL 100 MG TAB PO SCH (09:05)
[2023-05-08] MEDS: VENLAFAXINE HCL 37.5MG TABLET PO SCH (09:05)
[2023-05-08] MEDS: GABAPENTIN 100 MG CAP PO SCH (09:05)
[2023-05-08] MEDS: OXYBUTYNIN CHL 5 MG TAB PO SCH (09:05)
[2023-05-09] MEDS ORDERED: FUROSEMIDE 20 MG TAB PO SCH (10:00)
== END 2023-05-08 17:51 | DRG 720 ==
LOC: EDBD 10:39 → ER 10:39 → EDUNIT# 10:39 → OVERFLOW 14:40 → DOU IN ICU 16:47 → ICU CENTRL 04-20 05:27 → DOU IN ICU 04-24 19:20 → ICU CENTRL 04-24 23:14 → ICU WEST 04-25 10:56 → TELE-CENTR 04-30 19:49 → CENTRAL 05-08 16:41
PROVIDERS: ADMIT Internal Medicine Pulmonary Disease; ATTEND Nurse Practitioner Acute Care
PROC: 0W9G3ZZ Drainage of Peritoneal Cavity, Percutaneous Approach (ICD-10-PCS; 2023-04-19)
PROC: 02HV33Z Insertion of Infusion Device into Superior Vena Cava, Percutaneous Approach (ICD-10-PCS; 2023-04-20)
PROC: B548ZZA Ultrasonography of Superior Vena Cava, Guidance (ICD-10-PCS; 2023-04-20)
PROC: 0W9G3ZZ Drainage of Peritoneal Cavity, Percutaneous Approach (ICD-10-PCS; principal; 2023-04-26)
DX: A41.9 Sepsis, unspecified organism (principal); J96.01 Acute respiratory failure with hypoxia; K72.00 Acute and subacute hepatic failure without coma; N17.0 Acute kidney failure with tubular necrosis; K76.7 Hepatorenal syndrome; D68.9 Coagulation defect, unspecified; E43 Unspecified severe protein-calorie malnutrition; E87.1 Hypo-osmolality and hyponatremia; R65.21 Severe sepsis with septic shock; K70.31 Alcoholic cirrhosis of liver with ascites; F33.1 Major depressive disorder, recurrent, moderate; K70.11 Alcoholic hepatitis with ascites; E66.01 Morbid (severe) obesity due to excess calories; E87.5 Hyperkalemia; I11.0 Hypertensive heart disease with heart failure; I50.30 Unspecified diastolic (congestive) heart failure; F10.10 Alcohol abuse, uncomplicated; Y90.0 Blood alcohol level of less than 20 mg/100 ml; F17.210 Nicotine dependence, cigarettes, uncomplicated; R73.9 Hyperglycemia, unspecified; E88.09 Other disorders of plasma-protein metabolism, not elsewhere classified; J44.9 Chronic obstructive pulmonary disease, unspecified; R45.851 Suicidal ideations; D64.9 Anemia, unspecified; N39.0 Urinary tract infection, site not specified; E87.6 Hypokalemia; Z68.42 Body mass index [BMI] 45.0-49.9, adult; Z22.322 Carrier or suspected carrier of Methicillin resistant Staphylococcus aureus; Z83.3 Family history of diabetes mellitus; Z78.9 Other specified health status; Z82.49 Family history of ischemic heart disease and other diseases of the circulatory system
CPT/HCPCS: 36415; 36569; 36600; 71045; 74176; 76705; 76942; 80048; 80053; 80074; 80202; 80307; 80320; 81001; 82105; 82140; 82570; 82805; 82962; 83036; 83605; 83615; 83690; 83735; 83930; 83986; 84100; 84132; 84300; 84702; 85025; 85048; 85610; 85730; 87040; 87081; 87205; 89051; 93005; 93306; 94640; 96361; 96365; 96367; 96368; 96375; 97110; 97116; 97163; 97530; 99291; C9113; G0378; J0696; J1815; J1956; J2405; J2543; J3430; J3480; J7060; P9047

== ENCOUNTER 2023-07-04 10:25 | Inpatient (IN) | payer MEDICAID ==
[~2023-07-04] VITALS: Ht 165.1 cm; Wt 104.5 kg
[~2023-07-04 10:25] MED LIST changes: -ALBUAER3 IN; -ASCO10003 PO; -ASPI-378 PO; -BUDE2SUS3 IN; -BUPR75TA89 PO; -DEX4T PO; -DEXT1SYP9 PO; -DICY10CA PO; -DOXY-286 PO; -GABA-1250 PO; +GABA300C PO; -ZINC220T6 PO
[2023-07-04 11:01] LABS: Basophils # (auto) 0.1 10 ^3/uL (0-0.2); Basophils % (auto) 1.1 % (0.0-2.0); Eosinophils # (auto) 0.1 10 ^3/uL (0-0.8); Hemoglobin 10.6 g/dL (12.2-16.2); Lymphocytes # (auto) 1.3 10 ^3/uL (0.4-5.4); Lymphocytes % (auto) 24.2 % (10.0-50.0); Mean Corpuscular Hemoglobin 32.7 pg (28.0-32.0); Mean Corpuscular Hgb Conc. 33.1 g/dL (32.0-36.0); Mean Corpuscular Volume 98.7 fL (80.0-100.0); Monocytes # (auto) 0.5 10 ^3/uL (0-1.3); Monocytes % (auto) 8.4 % (0.0-12.0); Neutrophils # (auto) 3.6 10 ^3/uL (1.6-8.6); Neutrophils % (auto) 65.3 % (37.0-80.0); Nucleated Red Blood Cells % 0.1 %; Red Blood Cells 3.24 10^6/uL (4.0-5.20); Red Cell Distribution Width 16.4 % (11.8-14.3); White Blood Cell 5.4 10^3/uL (4.4-10.8)
[2023-07-04 11:13] LABS: INR 1.3 (0.9-1.15); Partial Thromboplastin Time 34.1 SEC (24.5-34.5); Prothrombin Time 13.4 sec (9.3-11.8)
[2023-07-04 11:31] LABS: Albumin 2.7 g/dL (3.2-4.8); Alkaline Phosphatase 128 U/L (46-116); Anion Gap 4 (5-15); Aspartate Aminotransferase 19 U/L (13-40); Bilirubin, Total 1.4 mg/dL (0.2-1.0); Calcium 8.4 mg/dL (8.7-10.4); Carbon Dioxide 26 mmol/L (20-30); Chloride 106 mmol/L (98-107); Lipase 30 U/L (12-53); Magnesium 1.3 mg/dL (1.6-2.6); Potassium 3.5 mmol/L (3.5-5.1); Sodium 136 mmol/L (136-145)
[2023-07-04 11:32] LABS: Total Protein 6.9 g/dL (5.7-8.2)
[2023-07-04 11:33] LABS: Alanine Aminotransferase < 9 U/L (7-40); BUN/Creatinine Ratio 7.6 (10.0-20.0); Blood Urea Nitrogen < 5 mg/dL (9-23)
[2023-07-04 11:48] LABS: Glucose 93 mg/dL (74-106)
[2023-07-04] MEDS ORDERED: DOCUSATE SOD 100 MG CAP PO PRN (12:30)
[2023-07-04] MEDS ORDERED: ONDANSETRON HCL 4 MG/2 ML VIAL IV PRN (12:30)
[2023-07-04] MEDS: MAGNESIUM SULFATE 1GM/100ML 100 ML IV SCH ×2 (17:11→18:07)
[2023-07-05 01:50] VITALS: O2SAT 96
[2023-07-05] MEDS ORDERED: OXYB2.5T PO (02:19)
[2023-07-05] MEDS ORDERED: MIDO10TA10 PO (02:19)
[2023-07-05] MEDS ORDERED: POTA10TA51 PO (02:19)
[2023-07-05] MEDS ORDERED: FOLI-119 PO (02:19)
[2023-07-05] MEDS ORDERED: GABA-1250 PO (02:19)
[2023-07-05] MEDS ORDERED: PANT40TA2 PO (02:19)
[2023-07-05] MEDS ORDERED: HYDR-4902 PO (02:19)
[2023-07-05] MEDS ORDERED: TRAM50TA2 PO (02:19)
[2023-07-05] MEDS ORDERED: TRAZ-181 PO (02:19)
[2023-07-05] MEDS: HYDROcodone-ACET 5/325MG TAB PO PRN (05:37)
[2023-07-05 06:11] LABS: Basophils # (auto) 0.1 10 ^3/uL (0-0.2); Basophils % (auto) 1.6 % (0.0-2.0); Eosinophils # (auto) 0.1 10 ^3/uL (0-0.8); Eosinophils % (auto) 1.8 % (0.0-7.0); Hematocrit 33.2 % (36.0-46.0); Hemoglobin 11.1 g/dL (12.2-16.2); Lymphocytes # (auto) 1.8 10 ^3/uL (0.4-5.4); Lymphocytes % (auto) 25.9 % (10.0-50.0); Mean Corpuscular Hemoglobin 32.7 pg (28.0-32.0); Mean Corpuscular Hgb Conc. 33.4 g/dL (32.0-36.0); Mean Corpuscular Volume 97.8 fL (80.0-100.0); Monocytes # (auto) 0.5 10 ^3/uL (0-1.3); Monocytes % (auto) 7.3 % (0.0-12.0); Neutrophils # (auto) 4.5 10 ^3/uL (1.6-8.6); Neutrophils % (auto) 63.4 % (37.0-80.0); Red Blood Cells 3.39 10^6/uL (4.0-5.20); Red Cell Distribution Width 16.5 % (11.8-14.3); White Blood Cell 7.1 10^3/uL (4.4-10.8)
[2023-07-05 06:26] LABS: Albumin 2.9 g/dL (3.2-4.8); Alkaline Phosphatase 128 U/L (46-116); Anion Gap 6 (5-15); Aspartate Aminotransferase 23 U/L (13-40); Calcium 8.7 mg/dL (8.5-10.1); Carbon Dioxide 26 mmol/L (20-30); Chloride 105 mmol/L (98-107); Glucose 92 mg/dL (74-106); Potassium 3.8 mmol/L (3.5-5.1); Sodium 137 mmol/L (136-145)
[2023-07-05 06:27] LABS: Alanine Aminotransferase < 9 U/L (7-40); BUN/Creatinine Ratio 7.9 (10.0-20.0); Bilirubin, Total 1.7 mg/dL (0.2-1.0); Blood Urea Nitrogen < 5 mg/dL (9-23); Total Protein 7.4 g/dL (5.7-8.2)
[2023-07-05 08:00] VITALS: PULSE 84; RESP 14; O2SAT 96
[2023-07-05] MEDS: MORPHINE SULFATE INJ 2 MG/ml SYRG IV PRN ×2 (09:57→18:27)
[2023-07-05 10:05] LABS: Body Fluid pH 8
[2023-07-05 12:19] LABS: Body Fluid Polymorphonuclear 10 % (0-25); Body Fluid Red Blood Cells 12 CUMM (0-2000); Body Fluid White Blood Cells 90 CUMM (0-200)
[2023-07-05] MEDS: PANTOPRAZOLE 40 MG/10 ML VIAL INJ IV SCH (12:43)
[2023-07-05 16:00] VITALS: BP 110/79; PULSE 93; RESP 16; RESP 18; TEMP 97.9; O2SAT 96
[2023-07-05 17:41] VITALS: BP 110/79; PULSE 93; RESP 21; TEMP 97.9; O2SAT 96
[2023-07-05 20:00] VITALS: PULSE 66
[2023-07-06] MEDS: HYDROcodone-ACET 5/325MG TAB PO PRN (00:47)
[2023-07-06 01:29] LABS: Urine Bacteria FEW /hpf (None Seen); Urine Blood Negative /uL (Negative); Urine Clarity HAZY (Clear); Urine Color Yellow (Yellow); Urine Hyaline Cast FEW /lpf (0 - 2); Urine Mucus MODERATE (None Seen); Urine Protein, UAD TRACE (Negative); Urine Specific Gravity 1.018 (1.001-1.035); Urine WBC 7 /hpf (0 - 5)
[2023-07-06 05:00] VITALS: BP 108/73; PULSE 80; RESP 15; TEMP 98; O2SAT 92
[2023-07-06 08:00] VITALS: PULSE 80
[2023-07-06 09:00] VITALS: BP 107/68; PULSE 97; RESP 18; TEMP 97.9; O2SAT 95
[2023-07-06 10:00] VITALS: PULSE 80
[2023-07-06] MEDS: PANTOPRAZOLE 40 MG/10 ML VIAL INJ IV SCH (10:17)
[2023-07-06 11:41] VITALS: BP 108/73; PULSE 80; RESP 18; TEMP 36.6; O2SAT 93
[2023-07-06 13:00] VITALS: BP 105/72; PULSE 80; RESP 20; TEMP 98.3; O2SAT 95
[2023-07-06 14:06] LABS: Protein, Body Fluid 2.3 g/dL (.)
== END 2023-07-06 13:45 | disposition home or self-care (01) | DRG 280 ==
LOC: ER 10:25 → OVERFLOW 12:28 → WEST WING 07-05 15:44
PROVIDERS: ADMIT Nurse Practitioner Family; ATTEND Family Medicine
PROC: 0W9G3ZZ Drainage of Peritoneal Cavity, Percutaneous Approach (ICD-10-PCS; principal; 2023-07-05)
DX: K70.31 Alcoholic cirrhosis of liver with ascites (principal); E43 Unspecified severe protein-calorie malnutrition; I95.89 Other hypotension; D64.9 Anemia, unspecified; D63.8 Anemia in other chronic diseases classified elsewhere; Z68.38 Body mass index [BMI] 38.0-38.9, adult; F17.210 Nicotine dependence, cigarettes, uncomplicated; F10.20 Alcohol dependence, uncomplicated; E83.42 Hypomagnesemia; E66.9 Obesity, unspecified; R55 Syncope and collapse; F32.A Depression, unspecified; J44.89 Other specified chronic obstructive pulmonary disease; Z83.3 Family history of diabetes mellitus; Z98.891 History of uterine scar from previous surgery; Z71.6 Tobacco abuse counseling
CPT/HCPCS: 36415; 70450; 74176; 76705; 76942; 80053; 81001; 82140; 83690; 83735; 83986; 84702; 85025; 85610; 85730; 87205; 89051; 93005; C9113; G0378

== ENCOUNTER 2024-05-15 15:32 | Inpatient (IN) | payer MEDICAID ==
[~2024-05-15] VITALS: Ht 166.4 cm; Wt 91.6 kg
[~2024-05-15 15:32] MED LIST changes: +FOLI-119 PO; +GABA-1250 PO; -GABA300C PO; +HYDR-4902 PO; +MIDO10TA10 PO; +OXYB2.5T PO; +PANT40TA2 PO; +POTA-36 PO; +TRAM50TA2 PO; +TRAZ-181 PO
[2024-05-15 16:19] VITALS: RESP 20; O2SAT 98
[2024-05-15] MEDS: HYDROcodone-ACET 5/325MG TAB PO ONE (16:23)
[2024-05-15 16:36] LABS: Basophils # (auto) 0 10 ^3/uL (0-0.2); Basophils % (auto) 0.4 % (0.0-2.0); Eosinophils # (auto) 0.1 10 ^3/uL (0-0.8); Eosinophils % (auto) 1.4 % (0.0-7.0); Hematocrit 44.8 % (36.0-46.0); Hemoglobin 15.8 g/dL (12.2-16.2); Lymphocytes # (auto) 3.6 10 ^3/uL (0.4-5.4); Lymphocytes % (auto) 39.5 % (10.0-50.0); Mean Corpuscular Hemoglobin 32.7 pg (28.0-32.0); Mean Corpuscular Hgb Conc. 35.4 g/dL (32.0-36.0); Mean Corpuscular Volume 92.5 fL (80.0-100.0); Monocytes # (auto) 0.5 10 ^3/uL (0-1.3); Monocytes % (auto) 5.3 % (0.0-12.0); Neutrophils # (auto) 4.9 10 ^3/uL (1.6-8.6); Neutrophils % (auto) 53.4 % (37.0-80.0); Nucleated Red Blood Cells % 0.2 %; Platelet Count (auto) 207 10^3/uL (140-450); Red Blood Cells 4.84 10^6/uL (4.0-5.20); Red Cell Distribution Width 13.1 % (11.8-14.3); White Blood Cell 9.2 10^3/uL (4.4-10.8)
[2024-05-15 16:56] LABS: Alanine Aminotransferase 17 U/L (7-40); Albumin 4.8 g/dL (3.2-4.8); Alkaline Phosphatase 96 U/L (46-116); Anion Gap 7 (5-15); Aspartate Aminotransferase 16 U/L (13-40); BUN/Creatinine Ratio 19.8 (10.0-20.0); Blood Urea Nitrogen 24 mg/dL (9-23); Calcium 9.9 mg/dL (8.7-10.4); Carbon Dioxide 26 mmol/L (20-30); Chloride 105 mmol/L (98-107); Glucose 91 mg/dL (74-106); Potassium 4.1 mmol/L (3.5-5.1); Sodium 138 mmol/L (136-145)
[2024-05-15 16:57] LABS: Bilirubin, Total 0.6 mg/dL (0.2-1.0)
[2024-05-15 17:03] LABS: INR 1.04 (0.9-1.15); Partial Thromboplastin Time 27.4 SEC (24.5-34.5)
[2024-05-15 18:06] LABS: Urine Bacteria FEW /hpf (None Seen); Urine Blood Negative /uL (Negative); Urine Clarity Turbid (Clear); Urine Color Light-Yellow (Yellow); Urine Protein, UAD Negative (Negative); Urine Urobilinogen Normal (Negative); Urine WBC 2 /hpf (0 - 5); Urine pH 5.5 (5.0-9.0)
[2024-05-15] MEDS: ONDANSETRON HCL 4 MG/2 ML VIAL IV ONE (19:41)
[2024-05-15] MEDS: MORPHINE SULFATE 4 MG/ML SYR/VIAL IV ONE (19:44)
[2024-05-15] MEDS ORDERED: DOCUSATE SOD 100 MG CAP PO PRN (23:15)
[2024-05-15] MEDS ORDERED: ACETAMINOPHEN 325 MG TAB PO PRN (23:15)
[2024-05-15] MEDS ORDERED: NITROGLYCERIN 0.4 MG SL TAB SL PRN (23:15)
[2024-05-15] MEDS ORDERED: MORPHINE SULFATE INJ 2 MG/ml SYRG IV PRN ×2 (23:15)
[2024-05-15] MEDS: SODIUM CHLORIDE 0.9% 1,000 ML IV SCH (23:59)
[2024-05-16] VITALS (7 sets, daily range): BP systolic 94–108; BP diastolic 62–72; PULSE 68–85; RESP 16–18; TEMP 97.5–98.4; O2SAT 93–97
[2024-05-16] MEDS ORDERED: HYDR-4798 PO (02:26)
[2024-05-16] MEDS ORDERED: DOCU-94 PO (02:26)
[2024-05-16] MEDS ORDERED: TEMA30CA PO (02:26)
[2024-05-16] MEDS ORDERED: FURO1TAB32 PO (02:26)
[2024-05-16] MEDS ORDERED: SPIR100T4 PO (02:26)
[2024-05-16] MEDS ORDERED: ONDA-155 PO (02:28)
[2024-05-16 06:09] LABS: Basophils # (auto) 0.1 10 ^3/uL (0-0.2); Basophils % (auto) 0.5 % (0.0-2.0); Eosinophils # (auto) 0.1 10 ^3/uL (0-0.8); Eosinophils % (auto) 1.4 % (0.0-7.0); Hematocrit 46.9 % (36.0-46.0); Hemoglobin 16.4 g/dL (12.2-16.2); Lymphocytes # (auto) 4.3 10 ^3/uL (0.4-5.4); Lymphocytes % (auto) 42.5 % (10.0-50.0); Mean Corpuscular Hemoglobin 32.8 pg (28.0-32.0); Mean Corpuscular Volume 93.6 fL (80.0-100.0); Monocytes # (auto) 0.5 10 ^3/uL (0-1.3); Monocytes % (auto) 4.7 % (0.0-12.0); Neutrophils # (auto) 5.2 10 ^3/uL (1.6-8.6); Neutrophils % (auto) 50.9 % (37.0-80.0); Nucleated Red Blood Cells % 0.2 %; Platelet Count (auto) 195 10^3/uL (140-450); Red Blood Cells 5.01 10^6/uL (4.0-5.20); Red Cell Distribution Width 13.3 % (11.8-14.3); White Blood Cell 10.2 10^3/uL (4.4-10.8)
[2024-05-16 06:14] LABS: Alanine Aminotransferase 12 U/L (7-40); Albumin 4.8 g/dL (3.2-4.8); Alkaline Phosphatase 99 U/L (46-116); Anion Gap 3 (5-15); Aspartate Aminotransferase 17 U/L (13-40); BUN/Creatinine Ratio 18.3 (10.0-20.0); Blood Urea Nitrogen 22 mg/dL (9-23); Calcium 10.6 mg/dL (8.7-10.4); Carbon Dioxide 30 mmol/L (20-30); Chloride 105 mmol/L (98-107); Glucose 89 mg/dL (74-106); Sodium 138 mmol/L (136-145)
[2024-05-16 06:15] LABS: Bilirubin, Total 0.7 mg/dL (0.2-1.0); Total Protein 8.1 g/dL (5.7-8.2)
[2024-05-16] MEDS: PANTOPRAZOLE 40 MG/10 ML VIAL INJ IV SCH (11:11)
[2024-05-16] MEDS: HYDROcodone-ACET 5/325MG TAB PO PRN (11:16)
[2024-05-16] MEDS: SPIRONOLACTONE 25 MG TAB PO ONE (18:00)
[2024-05-16] MEDS: NICOTINE 14 MG/24HR TOPICAL PATCH TD ONE (18:00)
[2024-05-16] MEDS: FUROSEMIDE 40 MG TAB PO ONE (18:01)
[2024-05-16] MEDS: traZODone HCL 50 MG TAB PO SCH (20:30)
[2024-05-16] MEDS: GABAPENTIN 300 MG CAP PO SCH (20:30)
[2024-05-16] MEDS ORDERED: TEMAZEPAM 15 MG CAP PO PRN (22:00)
[2024-05-17 04:28] LABS: Amphetamine Screen, Urine Neg (NEGATIVE); Barbiturate Scree,Urine Neg (NEGATIVE); Benzodiazephine Screen, Urine Neg (NEGATIVE); Cocaine Screen, Urine Neg (NEGATIVE); Opiate Scree,Urine Pos (NEGATIVE); Phencyclidine Screen, Urine Neg (NEGATIVE)
[2024-05-17 04:29] LABS: Cannabinoid Screen, Urine Neg (NEGATIVE)
[2024-05-17 05:00] VITALS: BP 125/85; PULSE 68; RESP 16; TEMP 97; O2SAT 96
[2024-05-17 06:01] LABS: Basophils # (auto) 0 10 ^3/uL (0-0.2); Basophils % (auto) 0.4 % (0.0-2.0); Eosinophils # (auto) 0.1 10 ^3/uL (0-0.8); Eosinophils % (auto) 0.8 % (0.0-7.0); Hematocrit 45.2 % (36.0-46.0); Hemoglobin 15.6 g/dL (12.2-16.2); Lymphocytes # (auto) 3.7 10 ^3/uL (0.4-5.4); Lymphocytes % (auto) 32.1 % (10.0-50.0); Mean Corpuscular Hemoglobin 32.5 pg (28.0-32.0); Mean Corpuscular Hgb Conc. 34.5 g/dL (32.0-36.0); Mean Corpuscular Volume 94.2 fL (80.0-100.0); Monocytes # (auto) 0.6 10 ^3/uL (0-1.3); Monocytes % (auto) 5.4 % (0.0-12.0); Neutrophils % (auto) 61.3 % (37.0-80.0); Platelet Count (auto) 188 10^3/uL (140-450); Red Cell Distribution Width 13.1 % (11.8-14.3); White Blood Cell 11.5 10^3/uL (4.4-10.8)
[2024-05-17 06:23] LABS: Alanine Aminotransferase 18 U/L (7-40); Albumin 4.5 g/dL (3.2-4.8); Alkaline Phosphatase 93 U/L (46-116); Anion Gap 4 (5-15); Aspartate Aminotransferase 16 U/L (13-40); BUN/Creatinine Ratio 15.3 (10.0-20.0); Blood Urea Nitrogen 19 mg/dL (9-23); Calcium 10.8 mg/dL (8.7-10.4); Carbon Dioxide 28 mmol/L (20-30); Chloride 105 mmol/L (98-107); Glucose 95 mg/dL (74-106); Magnesium 1.9 mg/dL (1.6-2.6); Potassium 3.8 mmol/L (3.5-5.1); Sodium 137 mmol/L (136-145)
[2024-05-17 06:24] LABS: Bilirubin, Total 1.1 mg/dL (0.2-1.0); Total Protein 7.7 g/dL (5.7-8.2)
[2024-05-17 08:00] VITALS: PULSE 75; RESP 20; O2SAT 90
[2024-05-17 09:00] VITALS: BP 120/72; PULSE 75; RESP 20; TEMP 98.3; O2SAT 98
[2024-05-17] MEDS: ONDANSETRON HCL 4 MG/2 ML VIAL IV PRN (10:25)
[2024-05-17] MEDS: NICOTINE 14 MG/24HR TOPICAL PATCH TD SCH (10:26)
[2024-05-17] MEDS: SPIRONOLACTONE 25 MG TAB PO SCH (10:27)
[2024-05-17] MEDS: FUROSEMIDE 40 MG TAB PO SCH (10:29)
[2024-05-17 13:00] VITALS: BP 111/67; PULSE 73; RESP 18; TEMP 97.9; O2SAT 95
[2024-05-17 17:00] VITALS: BP 109/71; PULSE 79; RESP 18; TEMP 97.5; O2SAT 93
[2024-05-17 21:00] VITALS: BP 100/75; PULSE 81; RESP 18; TEMP 98.1; O2SAT 95
[2024-05-17] MEDS: metroNIDAZOLE 500MG/100ML 100 ML IV SCH (22:23)
[2024-05-18] VITALS (8 sets, daily range): BP systolic 97–116; BP diastolic 68–76; PULSE 60–97; RESP 16–22; TEMP 97.1–98.5; O2SAT 94–96
[2024-05-18] MEDS: CEFEPIME 1GM/ 50ML 50 ML IV SCH (00:11)
[2024-05-18 06:49] LABS: Alanine Aminotransferase 16 U/L (7-40); Albumin 4.5 g/dL (3.2-4.8); Alkaline Phosphatase 89 U/L (46-116); Anion Gap 6 (5-15); Aspartate Aminotransferase 14 U/L (13-40); BUN/Creatinine Ratio 17.2 (10.0-20.0); Bilirubin, Total 1.1 mg/dL (0.2-1.0); Blood Urea Nitrogen 23 mg/dL (9-23); Calcium 10.6 mg/dL (8.7-10.4); Carbon Dioxide 28 mmol/L (20-30); Chloride 101 mmol/L (98-107); Glucose 87 mg/dL (74-106); Potassium 3.6 mmol/L (3.5-5.1); Sodium 135 mmol/L (136-145); Total Protein 7.6 g/dL (5.7-8.2)
[2024-05-18 06:54] LABS: Basophils # (auto) 0 10 ^3/uL (0-0.2); Basophils % (auto) 0.3 % (0.0-2.0); Eosinophils # (auto) 0.1 10 ^3/uL (0-0.8); Eosinophils % (auto) 1.2 % (0.0-7.0); Hematocrit 43.5 % (36.0-46.0); Hemoglobin 15.3 g/dL (12.2-16.2); Lymphocytes # (auto) 3.6 10 ^3/uL (0.4-5.4); Lymphocytes % (auto) 34.9 % (10.0-50.0); Mean Corpuscular Hemoglobin 32.9 pg (28.0-32.0); Mean Corpuscular Hgb Conc. 35.2 g/dL (32.0-36.0); Mean Corpuscular Volume 93.4 fL (80.0-100.0); Monocytes # (auto) 0.7 10 ^3/uL (0-1.3); Monocytes % (auto) 6.3 % (0.0-12.0); Neutrophils % (auto) 57.3 % (37.0-80.0); Nucleated Red Blood Cells % 0.1 %; Platelet Count (auto) 180 10^3/uL (140-450); Red Blood Cells 4.65 10^6/uL (4.0-5.20); Red Cell Distribution Width 13.3 % (11.8-14.3); White Blood Cell 10.4 10^3/uL (4.4-10.8)
[2024-05-19 01:00] VITALS: BP 109/68; PULSE 78; RESP 19; TEMP 97.6; O2SAT 97
[2024-05-19 05:00] VITALS: BP 99/72; PULSE 67; RESP 17; TEMP 98.5; O2SAT 93
[2024-05-19 06:10] LABS: Anion Gap 6 (5-15); Carbon Dioxide 28 mmol/L (20-30); Chloride 103 mmol/L (98-107); Potassium 3.6 mmol/L (3.5-5.1); Sodium 137 mmol/L (136-145)
[2024-05-19 06:12] LABS: Basophils # (auto) 0 10 ^3/uL (0-0.2); Basophils % (auto) 0.3 % (0.0-2.0); Calcium 10.6 mg/dL (8.7-10.4); Eosinophils # (auto) 0.2 10 ^3/uL (0-0.8); Eosinophils % (auto) 1.6 % (0.0-7.0); Hematocrit 44.8 % (36.0-46.0); Hemoglobin 15.8 g/dL (12.2-16.2); Lymphocytes # (auto) 2.7 10 ^3/uL (0.4-5.4); Lymphocytes % (auto) 27.8 % (10.0-50.0); Mean Corpuscular Hemoglobin 32.9 pg (28.0-32.0); Mean Corpuscular Hgb Conc. 35.3 g/dL (32.0-36.0); Mean Corpuscular Volume 93.2 fL (80.0-100.0); Monocytes # (auto) 0.7 10 ^3/uL (0-1.3); Monocytes % (auto) 6.8 % (0.0-12.0); Neutrophils # (auto) 6.2 10 ^3/uL (1.6-8.6); Neutrophils % (auto) 63.5 % (37.0-80.0); Platelet Count (auto) 172 10^3/uL (140-450); Red Blood Cells 4.81 10^6/uL (4.0-5.20); Red Cell Distribution Width 13.2 % (11.8-14.3); White Blood Cell 9.8 10^3/uL (4.4-10.8)
[2024-05-19 06:16] LABS: BUN/Creatinine Ratio 15.3 (10.0-20.0); Blood Urea Nitrogen 20 mg/dL (9-23); Glucose 94 mg/dL (74-106)
[2024-05-19 06:17] LABS: Magnesium 1.9 mg/dL (1.6-2.6)
[2024-05-19 08:20] VITALS: O2SAT 94
[2024-05-19 09:00] VITALS: BP_SYST 111; BP_SYST 115; BP_DIAS 75; BP_DIAS 82; PULSE 73; PULSE 76; RESP 16; RESP 17; TEMP 98.3; TEMP 98.5; O2SAT 100
[2024-05-19] MEDS ORDERED: LEVO500T91 PO (12:31)
[2024-05-19] MEDS ORDERED: PANT40TA2 PO (12:31)
[2024-05-19] MEDS ORDERED: MET500T PO (12:31)
[2024-05-19 13:00] VITALS: BP 103/70; PULSE 81; RESP 16; TEMP 98.1; O2SAT 98
[2024-05-19] MEDS: MAGNESIUM OXIDE 400 MG TAB PO ONE (13:04)
== END 2024-05-19 15:30 | disposition home or self-care (01) ==
LOC: ER 15:32 → WEST WING 23:18 → OVERFLOW 23:18 → WEST WING 05-16 01:47
PROVIDERS: ADMIT Internal Medicine; ATTEND Internal Medicine
DX: K80.20 Calculus of gallbladder without cholecystitis without obstruction (principal); K76.6 Portal hypertension; K70.30 Alcoholic cirrhosis of liver without ascites; E66.9 Obesity, unspecified; K76.89 Other specified diseases of liver; F32.A Depression, unspecified; R16.0 Hepatomegaly, not elsewhere classified; R16.1 Splenomegaly, not elsewhere classified; F17.210 Nicotine dependence, cigarettes, uncomplicated; J44.89 Other specified chronic obstructive pulmonary disease; Z82.49 Family history of ischemic heart disease and other diseases of the circulatory system; Z83.3 Family history of diabetes mellitus; Z68.32 Body mass index [BMI] 32.0-32.9, adult
CPT/HCPCS: 36415; 74176; 74181; 76705; 80048; 80053; 80307; 81001; 81025; 82306; 83605; 83690; 83735; 83970; 85025; 85610; 85730; G0378; J2405; J2470; J3490